=== PATIENT | female | born 1980 | race Caucasian/White ===

== ENCOUNTER 2017-01-12 14:11 | Emergency (ER) | payer SELFPAY ==
[2017-01-12] MEDS ORDERED: ASPIRIN 81 MG TABLET, CHEWABLE PO ONE (15:57)
--- NOTE | 2017-01-12 15:57 | ER Document Report ---
ED Medical Screen (RME) - General Mode of Arrival: Wheelchair Information source: Patient TRAVEL OUTSIDE OF THE [place] IN LAST 30 DAYS: No - HPI Patient complains to provider of: Dizziness Onset: This morning Associated Symptoms: Other - see notes above <TREVIN STAFFORD - Last Filed: 01/12/17 17:02> <ROBER PICHARDO - Last Filed: 01/12/17 19:44> - General Chief Complaint: Dizziness Stated Complaint: WEAKNESS,DIZZY Time Seen by Provider: 01/12/17 15:50 Notes: 36 year old female with history of CHF presents to the ED complaining of dizziness and shortness of breath that started earlier this morning after having a syncopal episode at her doctor's office. Patient states that she was diagnosed with a bowel impaction and low blood pressure by her physician 3 days ago and started vomiting excessively the next day. Patient returned to her physician yesterday and was given IV fluids and IM medication for vomiting. Patient's last bowel movement was yesterday afternoon. Patient reports feeling dizzy and seeing floaters when standing. Patient has a history of percocet use and has been undergoing rehab with suboxone. Patient weaned off suboxone 2 weeks ago. (TREVIN STAFFORD) - Related Data Allergies/Adverse Reactions: Sulfa (Sulfonamide Antibiotics) Allergy (Verified 01/12/17 16:25) Past Medical History - General Information source: Patient - Social History Cigarette use (# per day): Yes Chew tobacco use (# tins/day): No Frequency of alcohol use: None Drug Abuse: Prescription drugs - previous percocet use Family history: Reviewed & Not Pertinent - Past Medical History Cardiac Medical History: Reports: Hx Congestive Heart Failure, Hx Hypertension Renal/ Medical History: Denies: Hx Peritoneal Dialysis <TREVIN STAFFORD - Last Filed: 01/12/17 17:02> Review of Systems - Review of Systems Constitutional: No symptoms reported EENT: No symptoms reported Cardiovascular: See HPI, Syncope, Dizziness Respiratory: No symptoms reported Gastrointestinal: See HPI, Vomiting, Last bowel movement - yesterday afternoon, Other - bowel impaction Genitourinary: No symptoms reported Female Genitourinary: No symptoms reported Musculoskeletal: No symptoms reported Skin: No symptoms reported Hematologic/Lymphatic: No symptoms reported Neurological/Psychological: No symptoms reported -: Yes All other systems reviewed and negative <TREVIN STAFFORD - Last Filed: 01/12/17 17:02> Physical Exam - General General appearance: Alert In distress: None - Respiratory Respiratory status: No respiratory distress Breath sounds: Normal - Cardiovascular Rhythm: Regular Heart sounds: Normal auscultation Murmur: No Friction rub: No Gallop: None auscultated - Extremities General upper extremity: Normal inspection, Normal ROM. No: Edema General lower extremity: Normal inspection, Normal ROM. No: Edema <TREVIN STAFFORD - Last Filed: 01/12/17 17:02> - Vital signs Vitals: Temp Pulse BP Pulse Ox 98.5 F 22 L 94/73 L 90 L 01/12/17 14:13 01/12/17 14:13 01/12/17 14:13 01/12/17 14:13 Course - Laboratory Result Diagrams: 01/12/17 15:57 01/12/17 15:57 <ROBER PICHARDO - Last Filed: 01/12/17 19:44> - Vital Signs Vital signs: Temp Pulse Resp BP Pulse Ox 98.5 F 22 L 94/73 L 90 L 01/12/17 14:13 01/12/17 14:13 01/12/17 14:13 01/12/17 14:13 - Laboratory Laboratory results interpreted by me: 01/12/17 01/12/17 15:57 15:57 WBC 20.4 H RBC 6.00 H Hgb 17.0 H Hct 50.6 H RDW 17.8 H Abs Neuts (Manual) 13.5 H Abs Lymphs (Manual) 5.9 H Calcium 10.4 H Direct Bilirubin 0.5 H AST 37 H Creatine Kinase 27 L Scribe Documentation - Scribe Written by Scribe:: Raleigh Stockton 01/12/2017 1732 acting as scribe for :: Kingsley <TREVIN STAFFORD - Last Filed: 01/12/17 17:02>
[2017-01-12 17:13] LABS: HEMATOCRIT 50.6 % (36.0-47.0); HGB HCT DIFFERENCE 0.4; MEAN CORPUSCULAR HEMOGLOBIN 28.4 pg (27.0-33.4); MEAN CORPUSCULAR HGB CONC 33.7 g/dL (32.0-36.0); MEAN CORPUSCULAR VOLUME 84 fl (80-97); RED CELL DISTRIBUTION WIDTH 17.8 % (11.5-14.0); WHITE BLOOD COUNT 20.4 10^3/uL (4.0-10.5)
--- NOTE | 2017-01-12 17:17 | RADIOLOGY REPORT (SQ) ---
EXAM DESCRIPTION: CHEST SINGLE VIEW COMPLETED DATE/TIME: 01/12/2017 5:10 pm REASON FOR STUDY: SOB, h/o CHF COMPARISON: None. EXAM PARAMETERS: NUMBER OF VIEWS: One view. TECHNIQUE: Single frontal radiographic view of the chest acquired. RADIATION DOSE: NA LIMITATIONS: None. FINDINGS: LUNGS AND PLEURA: No opacities, masses or pneumothorax. No pleural effusion. MEDIASTINUM AND HILAR STRUCTURES: No masses. Contour normal. HEART AND VASCULAR STRUCTURES: Heart normal in size. Normal vasculature. BONES: No acute findings. HARDWARE: None in the chest. OTHER: No other significant finding. IMPRESSION: NO ACUTE RADIOGRAPHIC FINDING IN THE CHEST. TECHNICAL DOCUMENTATION: JOB ID: [id number]
[2017-01-12 17:32] LABS: ALANINE AMINOTRANSFERASE 44 U/L (9-52); ALKALINE PHOSPHATASE 82 U/L (38-126); ANION GAP 17 (5-19); ASPARTATE AMINO TRANSFERASE 37 U/L (14-36); BILIRUBIN,DIRECT 0.5 mg/dL (0.0-0.4); BILIRUBIN,TOTAL 1.2 mg/dL (0.2-1.3); BLOOD UREA NITROGEN 19 mg/dL (7-20); CALCIUM 10.4 mg/dL (8.4-10.2); CARBON DIOXIDE 24 mmol/L (22-30); CHLORIDE 99 mmol/L (98-107); CREATINE KINASE 27 U/L (30-135); CREATININE RESULT 0.82 mg/dL (0.52-1.25); GLUCOSE 95 mg/dL (75-110); POTASSIUM 4.2 mmol/L (3.6-5.0); SODIUM 140.2 mmol/L (137-145); TOTAL PROTEIN 7.9 g/dL (6.3-8.2)
[2017-01-12 17:43] LABS: CREATINE KINASE MB 0.91 ng/mL (<4.55)
[2017-01-12 18:02] LABS: TROPONIN I 0.037 ng/mL
[2017-01-12 18:17] LABS: BASOPHILS % (MANUAL) 0 % (0-2); EOSINOPHILS % (MANUAL) 0 % (0-6); LYMPHOCYTES % (MANUAL) 20 % (13-45); TOTAL CELLS COUNTED 100
[2017-01-12 18:20] LABS: ANISOCYTOSIS 1+; OVALOCYTES SLIGHT
[2017-01-12] MEDS ORDERED: DICYCLOMINE HCL INJ 20 MG/2 ML AMPULE IM ONE (18:41)
--- NOTE | 2017-01-12 18:45 | ER Document Report ---
ED General - General Chief Complaint: Dizziness Stated Complaint: WEAKNESS,DIZZY Time Seen by Provider: 01/12/17 15:50 Mode of Arrival: Wheelchair Information source: Patient Notes: 36-year-old female presents with complaints of lightheadedness dizziness constipation. Patient notes she is passed out 3 times a day feels when she stands up she passes out. Patient denies any fevers or chills denies any shortness of breath. She does admit to abdominal cramping TRAVEL OUTSIDE OF THE [place] IN LAST 30 DAYS: No - HPI Onset: Last week Onset/Duration: Persistent Quality of pain: Cramping Severity: Mild Pain Level: 1 Associated symptoms: Nausea, Vomiting, Other - Constipation Exacerbated by: Standing Relieved by: Denies Similar symptoms previously: No Recently seen / treated by doctor: No - Related Data Allergies/Adverse Reactions: Sulfa (Sulfonamide Antibiotics) Allergy (Verified 01/12/17 16:25) Past Medical History - General Information source: Patient - Social History Smoking Status: Current Every Day Smoker Cigarette use (# per day): Yes Chew tobacco use (# tins/day): No Smoking Education Provided: No Frequency of alcohol use: None Drug Abuse: Prescription drugs - previous percocet use Family History: Reviewed & Not Pertinent Patient has suicidal ideation: No - Past Medical History Cardiac Medical History: Reports: Hx Congestive Heart Failure, Hx Hypertension Pulmonary Medical History: Reports: Hx Pneumonia Renal/ Medical History: Denies: Hx Peritoneal Dialysis Past Surgical History: Reports: Hx Cardiac Catheterization, Hx Tubal Ligation - Immunizations Hx Diphtheria, Pertussis, Tetanus Vaccination: Yes - 2014 Review of Systems - Review of Systems Notes: REVIEW OF SYSTEMS: CONSTITUTIONAL : Denies fever, chills, or sweats. Denies recent illness. EENT: Denies eye, ear, throat, or mouth pain or symptoms. Denies nasal or sinus congestion or discharge. Denies throat, tongue, or mouth swelling or difficulty swallowing. CARDIOVASCULAR: Admits to syncope RESPIRATORY: Denies cough, cold, or chest congestion. Denies shortness of breath, difficulty breathing, or wheezing. GASTROINTESTINAL: Admits constipation GENITOURINARY: Denies difficulty urinating, painful urination, burning, frequency, blood in urine, or discharge. FEMALE GENITOURINARY: Denies vaginal bleeding, heavy or abnormal periods, irregular periods. Denies vaginal discharge or odor. MUSCULOSKELETAL: Denies back or neck pain or stiffness. Denies joint pain or swelling. SKIN: Denies rash, lesions or sores. HEMATOLOGIC : Denies easy bruising or bleeding. LYMPHATIC: Denies swollen, enlarged glands. NEUROLOGICAL: Denies confusion or altered mental status. Denies passing out or loss of consciousness. Denies dizziness or lightheadedness. Denies headache. Denies weakness or paralysis or loss of use of either side. Denies problems with gait or speech. Denies sensory loss, numbness, or tingling. Denies seizures. PSYCHIATRIC: Denies anxiety or stress. Denies depression, suicidal ideation, or homicidal ideation. ALL OTHER SYSTEMS REVIEWED AND NEGATIVE. PHYSICAL EXAMINATION: GENERAL: Well-appearing, well-nourished and in no acute distress. HEAD: Atraumatic, normocephalic. EYES: Pupils equal round and reactive to light, extraocular movements intact, conjunctiva are normal. ENT: Nares patent, oropharynx clear without exudates. Moist mucous membranes. NECK: Normal range of motion, supple without lymphadenopathy LUNGS: Breath sounds clear to auscultation bilaterally and equal. No wheezes rales or rhonchi. Patient is satting 100% on room air HEART: Regular rate and rhythm without murmurs heart rate is at 85 but raises to 102 when I start talking ABDOMEN: Soft, nontender, nondistended abdomen. No guarding, no rebound. No masses appreciated. Female : deferred Musculoskeletal: Normal range of motion, no pitting or edema. No cyanosis. NEUROLOGICAL: Cranial nerves grossly intact. Normal speech, normal gait. Normal sensory, motor exams PSYCH: Normal mood, normal affect. SKIN: Warm, Dry, normal turgor, no rashes or lesions noted. Dictation was performed using [employer] voice recognition software Physical Exam - Vital signs Vitals: Temp Pulse BP Pulse Ox 98.5 F 22 L 94/73 L 90 L 01/12/17 14:13 01/12/17 14:13 01/12/17 14:13 01/12/17 14:13 Course - Re-evaluation Re-evalutation: 01/12/17 18:45 Patient notes that she has a history of Percocet abuse and just came out of rehab for it. She denies any fevers or chills 01/12/17 21:37 Patient's white count is noted to be significantly elevated, I believe this may be secondary to viral syndrome that she has had associated with nausea and vomiting. CTs were performed no acute abnormality was noted patient's vital signs stabilized and she is stable for discharge After performing a Medical Screening Examination, I estimate there is LOW risk for ACUTE APPENDICITIS, BOWEL OBSTRUCTION, ACUTE CHOLECYSTITIS, PERFORATED DIVERTICULITIS, INCARCERATED HERNIA, PANCREATITIS, PELVIC INFLAMMATORY DISEASE, PERFORATED ULCER, ECTOPIC , or TUBO-OVARIAN ABSCESS, thus I consider the discharge disposition reasonable. Also, there is no evidence or peritonitis , sepsis, or toxicity. I have reevaluated this patient multiple times and no significant life threatening changes are noted. The patient and I have discussed the diagnosis and risks, and we agree with discharging home with close follow-up with the understanding that symptoms and presentations can change. We also discussed returning to the Emergency Department immediately if new or worsening symptoms occur. We have discussed the symptoms which are most concerning (e.g., bloody stool, fever, changing or worsening pain, vomiting) that necessitate immediate return. - Vital Signs Vital signs: Temp Pulse Resp BP Pulse Ox 98.5 F 22 L 14 148/99 H 99 01/12/17 14:13 01/12/17 14:13 01/12/17 21:13 01/12/17 21:13 01/12/17 21:13 - Laboratory Result Diagrams: 01/12/17 15:57 01/12/17 15:57 Laboratory results interpreted by me: 01/12/17 01/12/17 15:57 15:57 WBC 20.4 H RBC 6.00 H Hgb 17.0 H Hct 50.6 H RDW 17.8 H Abs Neuts (Manual) 13.5 H Abs Lymphs (Manual) 5.9 H Calcium 10.4 H Direct Bilirubin 0.5 H AST 37 H Creatine Kinase 27 L - Diagnostic Test Radiology reviewed: Image reviewed, Reports reviewed Discharge - Discharge Clinical Impression: Nausea & vomiting Qualifiers: Vomiting type: unspecified Vomiting Intractability: non-intractable Qualified Code(s): R11.2 - Nausea with vomiting, unspecified Elevated white blood cell count Qualifiers: Leukocytosis type: unspecified Qualified Code(s): D72.829 - Elevated white blood cell count, unspecified Condition: Stable Disposition: HOME, SELF-CARE Instructions: Vomiting ([facility]) Additional Instructions: Follow up with your physician tomorrow for further care or return to the ED IMMEDIATELY if symptoms worsen or new concerns occur. If you cannot afford to follow up with your primary care physician a list of low cost clinics have been provided at the end of your discharge papers as well. Prescriptions: Dicyclomine HCl [Bentyl 20 mg Tablet] 20 mg PO QID #40 tablet Metoclopramide HCl [Reglan 10 mg Tablet] 1 - 2 tab PO ASDIR PRN #25 tablet PRN Reason:
[2017-01-12] MEDS: NORMAL SALINE 1000 ML 1,000 ML IV PRN ×2 (19:01→21:17)
--- NOTE | 2017-01-12 19:48 | EKG REPORT ---
SEVERITY:- ABNORMAL ECG - SINUS RHYTHM SHORT MO INTERVAL, ACCELERATED AV CONDUCTION ANAI, CONSIDER BIATRIAL ABNORMALITIES BORDERLINE RIGHT AXIS DEVIATION CONSIDER LEFT VENTRICULAR HYPERTROPHY : Confirmed by: David Nowak MD 12-Jan-2017 19:47:55
[2017-01-12 21:19] VITALS: BP 148/99
--- NOTE | 2017-01-12 21:23 | RADIOLOGY REPORT (SQ) ---
EXAM DESCRIPTION: CTA CHEST; CTA ABDOMEN; CTA PELVIS COMPLETED DATE/TIME: 01/12/2017 9:09 pm REASON FOR STUDY: sob; syncope sob, abd pain COMPARISON: None. TECHNIQUE: CT scan of the abdominal aorta extending to the iliac bifurcation performed with and with out intravenous contrast using helical scanning technique with dynamic intravenous contrast injection . Images reviewed with lung, soft tissue, and bone windows. Reconstructed coronal and sagittal MPR im ages reviewed. All images stored on PACS. Advanced 3D imaging as volume rendering, MIPS, SSD performed? yes All CT scanners at this facility use dose modulation, iterative reconstruction, and/or weight based d osing when appropriate to reduce radiation dose to as low as reasonably achievable (ALARA). [facility]: Dose Right [facility]: CareDose [facility]: Dose Right [facility]: Teradose 4D [facility]: [employer] CONTRAST TYPE AND DOSE: contrast/concentration: Isovue 370.00 mg/ml; Total Contrast Delivered: 130.0 ml; Total Saline Delivered: 72.2 ml RENAL FUNCTION: GFR > 60. LIMITATIONS: None. FINDINGS: AORTA AND VESSELS: No aneurysm. No dissection. Renal arteries, SMA, celiac without stenosi s. LUNGS: No significant findings. No nodules or infiltrates. LIVER: Normal size. No masses or dilated ducts. SPLEEN: Normal size. No focal lesions. PANCREAS: No masses. No significant calcifications. No adjacent inflammation or peripancreatic fluid collections. Pancreatic duct not dilated. GALLBLADDER: No identified stones by CT criteria. No inflammatory changes to suggest cholecystitis. ADRENAL GLANDS: No significant masses or asymmetry. RIGHT KIDNEY AND URETER: No mass, calculi or urinary tract obstruction. LEFT KIDNEY AND URETER: No mass, calculi or urinary tract obstruction. RETROPERITONEUM: No retroperitoneal adenopathy, hemorrhage or masses. BOWEL AND PERITONEAL CAVITY: No masses or inflammatory changes. No free fluid or peritoneal masses. APPENDIX: Normal. ABDOMINAL WALL: No masses. No hernias. BONY STRUCTURES: No significant or acute findings. 3-D IMAGING: Confirms the above findings. OTHER: No other significant finding. IMPRESSION: NO ABDOMINAL AORTIC ANEURYSM, DISSECTION OR SIGNIFICANT STENOSIS. NO SIGNIFICANT FINDING S. TECHNICAL DOCUMENTATION: JOB ID: [id number] Quality ID # [id number]: Final reports with documentation of one or more dose reduction techniques (e.g., Au tomated exposure control, adjustment of the mA and/or kV according to patient size, use of iterative reconstruction technique) 2010 [employer]- All Rights Reserved
[2017-01-12] MEDS ORDERED: METOCLOPRAMIDE HCL INJ/PF 10 MG/2 ML SDV IV ONE (22:04)
== END 2017-01-12 23:49 | disposition home or self-care (01) ==
LOC: ER 14:11
DX: R11.2 Nausea with vomiting, unspecified (principal); D72.829 Elevated white blood cell count, unspecified; R55 Syncope and collapse; K59.00 Constipation, unspecified; R10.9 Unspecified abdominal pain; F17.210 Nicotine dependence, cigarettes, uncomplicated; I10 Essential (primary) hypertension; Z88.2 Allergy status to sulfonamides
CPT/HCPCS: 93005; 99285; 96372; 96361; 96374; 36415; 82553; 82550; 85025; 80053; 84484; 83880; 71010; 71275; 74175; 72191; 93010; J0500; J2765; J7030

== ENCOUNTER 2017-03-22 13:16 | Inpatient (IN) | payer SELFPAY ==
[2017-03-22] MEDS ORDERED: NORMAL SALINE 1000 ML 1,000 ML IV ONE (14:35)
[2017-03-22] MEDS ORDERED: ONDANSETRON HCL INJ/PF 4 MG/2 ML SDV IV ONE ×2 (15:04→19:22)
--- NOTE | 2017-03-22 15:13 | ER Document Report ---
ED General - General Chief Complaint: Abdominal Pain Stated Complaint: ABDOMINAL PAIN Time Seen by Provider: 03/22/17 14:17 Mode of Arrival: Ambulatory Information source: Patient TRAVEL OUTSIDE OF THE [place] IN LAST 30 DAYS: No - HPI Patient complains to provider of: abdominal pain Onset: This morning Onset/Duration: Sudden Quality of pain: Cramping Severity: Severe Associated symptoms: Diarrhea, Headache, Nausea, Vomiting Exacerbated by: Movement Relieved by: Denies Similar symptoms previously: No Recently seen / treated by doctor: No Notes: 36-year-old female presents emergency department stating that she has had nausea vomiting and diarrhea with crampy abdominal pain and headache since this morning around 6 AM. She last ate cookout last night. No fevers or sick contacts. No other complaints. Patient also states that she had pneumonia which resulted in a "balloon in her heart" which is no longer there. She states she was on heart medications a few years ago but her insurance ran out so she cannot afford them. She also states that she smokes marijuana occasionally. - Related Data Allergies/Adverse Reactions: Sulfa (Sulfonamide Antibiotics) Allergy (Verified 01/12/17 16:25) Home Medications: Current Home Medications No Home Medications 03/22/17 [History] Past Medical History - General Information source: Patient - Social History Smoking Status: Former Smoker Cigarette use (# per day): No Chew tobacco use (# tins/day): No Smoking Education Provided: No Frequency of alcohol use: Social Drug Abuse: Marijuana Lives with: Family Family History: Reviewed & Not Pertinent - Past Medical History Cardiac Medical History: Reports: Hx Congestive Heart Failure, Hx Hypertension Pulmonary Medical History: Reports: Hx Pneumonia EENT Medical History: Reports: None Neurological Medical History: Reports: None Endocrine Medical History: Reports: None Renal/ Medical History: Reports: None. Denies: Hx Peritoneal Dialysis Malignancy Medical History: Reports: None GI Medical History: Reports: None Musculoskeltal Medical History: Reports None Skin Medical History: Reports None Psychiatric Medical History: Reports: None Traumatic Medical History: Reports: None Infectious Medical History: Reports: None Past Surgical History: Reports: Hx Cardiac Catheterization, Hx Tubal Ligation - Immunizations Hx Diphtheria, Pertussis, Tetanus Vaccination: Yes - 2014 Review of Systems - Review of Systems Constitutional: No symptoms reported EENT: No symptoms reported Cardiovascular: No symptoms reported Respiratory: No symptoms reported Gastrointestinal: See HPI Genitourinary: No symptoms reported Female Genitourinary: No symptoms reported Musculoskeletal: No symptoms reported Skin: No symptoms reported Hematologic/Lymphatic: No symptoms reported Neurological/Psychological: No symptoms reported Physical Exam - Vital signs Vitals: Resp Pulse Ox 14 100 03/22/17 13:36 03/22/17 13:36 Blood pressures 200s over 100s Notes: Temperature 97.5 oral - Notes Notes: PHYSICAL EXAMINATION: GENERAL: Patient is lying in bed appearing in moderate distress secondary to abdominal pain. She has an emesis bag next to her however it is empty.. HEAD: Atraumatic, normocephalic. EYES: Pupils equal round and reactive to light, extraocular movements intact, conjunctiva are normal. ENT: Nares patent, oropharynx clear without exudates. Dry mucous membranes. NECK: Normal range of motion, supple without lymphadenopathy LUNGS: Breath sounds clear to auscultation bilaterally and equal. No wheezes rales or rhonchi. HEART: Regular rate and rhythm without murmurs ABDOMEN: Soft, mild diffuse tenderness, nondistended abdomen. No guarding, no rebound. No masses appreciated. She has brown stool in the commode with apple jelly like entity within the stool Female : deferred Musculoskeletal: Normal range of motion, no pitting or edema. No cyanosis. NEUROLOGICAL: Cranial nerves grossly intact. Normal speech, normal gait. Normal sensory, motor exams PSYCH: Normal mood, normal affect. SKIN: Warm, Dry, normal turgor, no rashes or lesions noted. Course - Re-evaluation Re-evalutation: 03/22/17 19:26 Pt. still with nausea/pain. I called over to CT to see when CT will be read. There is an IT problem with image transmission to radiologist and they are working on it. 03/22/17 19:27 - Vital Signs Vital signs: Temp Pulse Resp BP Pulse Ox 98.4 F 26 H 137/94 H 95 03/22/17 20:40 03/22/17 22:01 03/22/17 22:01 03/22/17 22:01 - Laboratory Result Diagrams: 03/22/17 15:10 03/22/17 15:10 Laboratory results interpreted by me: 03/22/17 03/22/17 03/22/17 15:10 15:10 15:30 WBC 20.5 H RDW 15.6 H Seg Neuts % (Manual) 92 H Lymphocytes % (Manual) 7 L Monocytes % (Manual) 1 L Abs Neuts (Manual) 18.9 H Sodium 146.3 H Chloride 109 H Glucose 147 H AST 38 H Urine Protein 100 H Urine Glucose (UA) 50 H Urine Urobilinogen 4.0 H Urine Ascorbic Acid 40 H - Diagnostic Test Radiology results interpreted by me: 03/22/17 2Diagnostic report text EXAM DESCRIPTION: U/S ABDOMEN LIMITED W/O DOP COMPLETED DATE/TIME: 03/22/2017 8:50 pm REASON FOR STUDY: ruq pain/vomiting COMPARISON: None. TECHNIQUE: Dynamic and static grayscale images acquired of the abdomen and recorded on PACS. Additional selected color Doppler and spectral images recorded. LIMITATIONS: None. FINDINGS: PANCREAS: No masses. Visualized pancreatic duct normal caliber. LIVER: No masses. Echotexture normal. LIVER VASCULATURE: Normal directional flow of the main portal vein and hepatic veins. GALLBLADDER: No stones. Gallbladder wall thickening, 4 mm. There is pericholecystic fluid. ULTRASOUND-DETECTED BARGER'S SIGN: Positive. INTRAHEPATIC DUCTS AND COMMON DUCT: CBD and intrahepatic ducts normal caliber. No filling defects. INFERIOR VENA CAVA: Normal flow. AORTA: No aneurysm. RIGHT KIDNEY: Normal size. Normal echogenicity. No solid or suspicious masses. No hydronephrosis. No calcifications. PERITONEAL AND RIGHT PLEURAL SPACE: No ascites or effusions. OTHER: No other significant findings. IMPRESSION: Positive sonographic Barger sign. Gallbladder wall thickening and pericholecystic free fluid. Consider surgical consultation. TECHNICAL DOCUMENTATION: JOB ID: [id number] [place]-72 2010 [employer]- All Rights Reserved Dictated by: ROULA GALDAMEZ MD [id number] CC: ANNIE QUEEN, DO 2:34 Discharge - Discharge Clinical Impression: Cholecystitis, H/O leukocytosis Condition: Stable Admitting Provider: Surgicalist - Dr. Bowens Unit Admitted: Surgical Floor
[2017-03-22] MEDS ORDERED: MORPHINE SULFATE 10 MG/ML INJ IV ONE ×2 (15:14→19:22)
[2017-03-22 15:30] LABS: HEMOGLOBIN 13.5 g/dL (12.0-15.5); HGB HCT DIFFERENCE 0.5; MEAN CORPUSCULAR HEMOGLOBIN 29.8 pg (27.0-33.4); MEAN CORPUSCULAR HGB CONC 33.8 g/dL (32.0-36.0); MEAN CORPUSCULAR VOLUME 88 fl (80-97); RED BLOOD COUNT 4.54 10^6/uL (3.72-5.28); RED CELL DISTRIBUTION WIDTH 15.6 % (11.5-14.0); WHITE BLOOD COUNT 20.5 10^3/uL (4.0-10.5)
[2017-03-22 15:41] LABS: ALANINE AMINOTRANSFERASE 39 U/L (9-52); ALBUMIN 4.3 g/dL (3.5-5.0); ALKALINE PHOSPHATASE 97 U/L (38-126); ANION GAP 14 (5-19); ASPARTATE AMINO TRANSFERASE 38 U/L (14-36); BILIRUBIN,DIRECT 0.2 mg/dL (0.0-0.4); BILIRUBIN,TOTAL 0.4 mg/dL (0.2-1.3); BLOOD UREA NITROGEN 13 mg/dL (7-20); CALCIUM 9.6 mg/dL (8.4-10.2); CARBON DIOXIDE 23 mmol/L (22-30); CHLORIDE 109 mmol/L (98-107); GLUCOSE 147 mg/dL (75-110); LIPASE 41.9 U/L (23-300); MAGNESIUM 1.6 mg/dL (1.6-2.3); POTASSIUM 3.9 mmol/L (3.6-5.0); SODIUM 146.3 mmol/L (137-145); TOTAL PROTEIN 6.6 g/dL (6.3-8.2)
[2017-03-22 15:42] LABS: ALCOHOL < 10 mg/dL (NONE DETECTED)
[2017-03-22 15:56] LABS: ANISOCYTOSIS SLIGHT; BASOPHILS % (MANUAL) 0 % (0-2); EOSINOPHILS % (MANUAL) 0 % (0-6); LYMPHOCYTES % (MANUAL) 7 % (13-45); TOTAL CELLS COUNTED 100
[2017-03-22 17:07] LABS: APPEARANCE,URINE SLIGHTLY-CLOUDY; BILIRUBIN,URINE NEGATIVE (NEGATIVE); GLUCOSE, URINE 50 mg/dL (NEGATIVE); KETONES,URINE NEGATIVE (NEGATIVE); LEUKOCYTE ESTERASE,URINE NEGATIVE (NEGATIVE); NITRITE,URINE NEGATIVE (NEGATIVE); PROTEIN,URINE 100 mg/dL (NEGATIVE); URINE SPECIFIC GRAVITY 1.026
[2017-03-22 17:19] LABS: URINE BARBITURATES SCREEN NEGATIVE; URINE METHADONE SCREEN NEGATIVE; URINE OPIATES LOW NEGATIVE; URINE PHENCYCLIDINE SCREEN NEGATIVE
[2017-03-22] MEDS ORDERED: KETOROLAC TROMETHAMINE INJ/PF 30 MG/1 ML SDV IV ONE (17:29)
[2017-03-22] MEDS ORDERED: RINGERS SOLUTION,LACTATED 1,000 ML IV ONE (19:22)
--- NOTE | 2017-03-22 20:08 | RADIOLOGY REPORT (SQ) ---
EXAM DESCRIPTION: CT ABD/PELVIS WITH IV ONLY COMPLETED DATE/TIME: 03/22/2017 6:24 pm REASON FOR STUDY: abd pain/WBC 20 COMPARISON: 01/12/2017 TECHNIQUE: CT scan of the abdomen and pelvis performed using helical scanning technique with dynamic intravenous contrast injection. No oral contrast. Images reviewed with lung, soft tissue, and bone windows. Reconstructed coronal and sagittal MPR images reviewed. Delayed images for evaluation of the urinary system also acquired. All images stored on PACS. All CT scanners at this facility use dose modulation, iterative reconstruction, and/or weight based d osing when appropriate to reduce radiation dose to as low as reasonably achievable (ALARA). [facility]: Dose Right [facility]: CareDose [facility]: Dose Right [facility]: Teradose 4D [facility]: [employer] CONTRAST TYPE AND DOSE: contrast/concentration: Isovue 370.00 mg/ml; Total Contrast Delivered: 69.0 ml; Total Saline Delivered: 62.1 ml RENAL FUNCTION: GFR > 60. RADIATION DOSE: CT Rad equipment meets quality standard of care and radiation dose reduction techniq ues were employed. CTDIvol: 4.8 - 5.2 mGy. DLP: 538 mGy-cm.. LIMITATIONS: None. FINDINGS: LOWER CHEST: No significant findings. No nodules or infiltrates. LIVER: Normal size. Moderate intrahepatic periportal edema. No dilated ducts. SPLEEN: Normal size. No focal lesions. PANCREAS: No masses. No significant calcifications. No adjacent inflammation or peripancreatic fluid collections. Pancreatic duct not dilated. GALLBLADDER: Moderate inflammatory changes in the gallbladder fossa with a hydropic appearance, wall measuring 15 mm in portions. No calcified stones identified. ADRENAL GLANDS: No significant masses or asymmetry. RIGHT KIDNEY AND URETER: No solid masses. No significant calcifications. No hydronephrosis or hyd roureter. LEFT KIDNEY AND URETER: No solid masses. No significant calcifications. No hydronephrosis or hydr oureter. AORTA AND VESSELS: No aneurysm. No dissection. Renal arteries, SMA, celiac without stenosis. RETROPERITONEUM: No retroperitoneal adenopathy, hemorrhage or masses. BOWEL AND PERITONEAL CAVITY: No masses or inflammatory changes. No free fluid or peritoneal masses. APPENDIX: Not visualized. PELVIS: Mild free fluid. Normal bladder. ABDOMINAL WALL: No masses. No hernias. BONES: No acute findings. Old lower thoracic compression deformities and degenerative changes. OTHER: No other significant finding. IMPRESSION: Moderate inflammatory changes in the gallbladder fossa with a hydropic gallbladder appea juan francisco, wall measuring 15 mm in portions. No calcified stones identified. Moderate intrahepatic periportal edema. No dilated ducts. Appendix not identified. TECHNICAL DOCUMENTATION: JOB ID: [id number] [place]-72 Quality ID # [id number]: Final reports with documentation of one or more dose reduction techniques (e.g., Au tomated exposure control, adjustment of the mA and/or kV according to patient size, use of iterative reconstruction technique) 2010 [employer]- All Rights Reserved
[2017-03-22] MEDS ORDERED: AMPICILLIN SOD/SULBACTAM 3 GM VIAL IV ONE (20:40)
[2017-03-22] MEDS ORDERED: PROMETHAZINE HCL INJ 25 MG/1 ML VIAL IM ONE (20:51)
--- NOTE | 2017-03-22 22:04 | RADIOLOGY REPORT (SQ) ---
EXAM DESCRIPTION: U/S ABDOMEN LIMITED W/O DOP COMPLETED DATE/TIME: 03/22/2017 8:50 pm REASON FOR STUDY: ruq pain/vomiting COMPARISON: None. TECHNIQUE: Dynamic and static grayscale images acquired of the abdomen and recorded on PACS. Additio nal selected color Doppler and spectral images recorded. LIMITATIONS: None. FINDINGS: PANCREAS: No masses. Visualized pancreatic duct normal caliber. LIVER: No masses. Echotexture normal. LIVER VASCULATURE: Normal directional flow of the main portal vein and hepatic veins. GALLBLADDER: No stones. Gallbladder wall thickening, 4 mm. There is pericholecystic fluid. ULTRASOUND-DETECTED BARGER'S SIGN: Positive. INTRAHEPATIC DUCTS AND COMMON DUCT: CBD and intrahepatic ducts normal caliber. No filling defects. INFERIOR VENA CAVA: Normal flow. AORTA: No aneurysm. RIGHT KIDNEY: Normal size. Normal echogenicity. No solid or suspicious masses. No hydronephrosis. No calcifications. PERITONEAL AND RIGHT PLEURAL SPACE: No ascites or effusions. OTHER: No other significant findings. IMPRESSION: Positive sonographic Barger sign. Gallbladder wall thickening and pericholecystic free fluid. Consider surgical consultation. TECHNICAL DOCUMENTATION: JOB ID: [id number] [id number] [employer]- All Rights Reserved
--- NOTE | 2017-03-22 23:22 | PDOC H&P ---
History of Present Illness Admission Date/PCP: 03/22/17 22:53 Patient complains of: RUQ pains after a fatty dinner/cookout last night. History of Present Illness: DAY FARFAN is a 36 year old female c/o right sided abdominal pains an hour after eating fatty meal for dinner from a cookout. Woke up this am with fever and vomiting.Continued right sided abdominal pains.Had 2 loose stools then 3rd today was formed. Past Medical History Cardiac Medical History: Reports: Congestive Heart Failure, Hypertension Pulmonary Medical History: Reports: Pneumonia EENT Medical History: Reports: None Neurological Medical History: Reports: None Endocrine Medical History: Reports: None Renal/ Medical History: Reports: None Malignancy Medical History: Reports: None GI Medical History: Reports: None Musculoskeltal Medical History: Reports: None Skin Medical History: Reports: None Psychiatric Medical History: Reports: None Traumatic Medical History: Reports: None Infectious Medical History: Reports: None Past Surgical History Past Surgical History: Reports: Cardiac Catheterization, Tubal Ligation Social History Lives with: Family Smoking Status: Former Smoker - Advance Directive Resuscitation Status: Full Code Family History Family History: Reviewed & Not Pertinent Parental Family History Reviewed: Yes Children Family History Reviewed: No Sibling(s) Family History Reviewed.: No Medication/Allergy Home Medications: No Home Medications 03/22/17 Allergies/Adverse Reactions: Sulfa (Sulfonamide Antibiotics) Allergy (Verified 01/12/17 16:25) Review of Systems Constitutional: PRESENT: other - no fever/chills Eyes: PRESENT: other - no visual/hearing problems Cardiovascular: PRESENT: other - no chest pains Respiratory: PRESENT: other - no cough Gastrointestinal: PRESENT: abdominal pain, nausea Genitourinary: PRESENT: other - no dysuria. Has menses. Musculoskeletal: PRESENT: other - no joint swelling Integumentary: PRESENT: other - no rash Neurological: PRESENT: other - no seizures Psychiatric: PRESENT: other - no hallucinations Endocrine: PRESENT: other - no polyuria Hematologic/Lymphatic: PRESENT: other - no easy bruisability Physical Exam Vital Signs: Temp Pulse Resp BP Pulse Ox 98.4 F 26 H 137/94 H 95 03/22/17 20:40 03/22/17 22:01 03/22/17 22:01 03/22/17 22:01 General appearance: PRESENT: mild distress Head exam: PRESENT: atraumatic Eye exam: PRESENT: conjunctiva pink Mouth exam: PRESENT: moist, tongue midline Neck exam: PRESENT: full ROM Respiratory exam: PRESENT: clear to auscultation tee Cardiovascular exam: PRESENT: RRR Pulses: PRESENT: normal radial pulses Vascular exam: PRESENT: normal capillary refill GI/Abdominal exam: PRESENT: soft, tenderness - RUQ tenderness on deep palpation. More tender at RLQ Rectal exam: PRESENT: deferred Extremities exam: PRESENT: full ROM Musculoskeletal exam: PRESENT: ambulatory Neurological exam: PRESENT: alert, oriented to person, oriented to place, oriented to time, oriented to situation Psychiatric exam: PRESENT: appropriate affect Skin exam: PRESENT: normal color, warm Results Impressions: Abdomen/Pelvis CT 03/22/17 17:20 IMPRESSION: Moderate inflammatory changes in the gallbladder fossa with a hydropic gallbladder appearance, wall measuring 15 mm in portions. No calcified stones identified. Moderate intrahepatic periportal edema. No dilated ducts. Appendix not identified. Abdomen Ultrasound 03/22/17 19:22 IMPRESSION: Positive sonographic Barger sign. Gallbladder wall thickening and pericholecystic free fluid. Consider surgical consultation. Assessment & Plan - Diagnosis (1) Acalculous cholecystitis Is this a current diagnosis for this admission?: Yes - Time Time Spent: 30 to 50 Minutes - Inpatient Certification Based on my medical assessment, after consideration of the patient's comorbidities, presenting symptoms, or acuity I expect that the services needed warrant INPATIENT care.: Yes Medical Necessity: Need Close Monitoring Due to Risk of Patient Decompensation, Need For IV Fluids, Need for Pain Control, Need for IV Antibiotics Post Hospital Care: D/C or Transfer Summary - Plan Summary Plan Summary: Start IV antibiotics. Has h/o elevated WBC but no apparent cause according to patient. Was here in January with essentially same WBC. HIDA scan. If positive do lap orly Monitor clinically
[2017-03-22] MEDS ORDERED: GLUCAGON,HUMAN RECOMB 1 MG INJ SUBCUT PRN (23:23)
[2017-03-22] MEDS ORDERED: NORMAL SALINE 1000 ML 1,000 ML IV PRN (23:23)
[2017-03-22] MEDS ORDERED: DEXTROSE 40% GEL 15 GM TUBE PO PRN ×2 (23:23)
[2017-03-22] MEDS ORDERED: ONDANSETRON HCL INJ/PF 4 MG/2 ML SDV IV PRN (23:23)
[2017-03-22] MEDS ORDERED: DEXTROSE 50%-WATER 25 GM/50 ML DISP.SYRIN IV PRN ×2 (23:23)
[2017-03-23] MEDS ORDERED: NORMAL SALINE 1000 ML 1,000 ML IV PRN (00:05)
[2017-03-23] MEDS ORDERED: PIPERACILLIN/TAZOBACTAM 3.375 GM VIAL IV PRN (00:06)
[2017-03-23] MEDS ORDERED: INFLUENZA ADLT QUAD (36MOS+) 2017-18 VAC 0.5 ML SYR IM PRN (01:09)
[2017-03-23] MEDS ORDERED: PIPERACILLIN/TAZOBACTAM 3.375 GM VIAL IV ONE (01:38)
[2017-03-23] MEDS: ONDANSETRON HCL INJ/PF 4 MG/2 ML SDV IV PRN ×3 (02:19→16:52)
[2017-03-23] MEDS: MORPHINE SULFATE 10 MG/ML INJ IV PRN ×4 (02:39→19:53)
[2017-03-23 07:17] LABS: HEMATOCRIT 38.9 % (36.0-47.0); HEMOGLOBIN 13.3 g/dL (12.0-15.5); MEAN CORPUSCULAR HEMOGLOBIN 29.9 pg (27.0-33.4); MEAN CORPUSCULAR HGB CONC 34.2 g/dL (32.0-36.0); MEAN CORPUSCULAR VOLUME 88 fl (80-97); RED BLOOD COUNT 4.44 10^6/uL (3.72-5.28); WHITE BLOOD COUNT 24.8 10^3/uL (4.0-10.5)
[2017-03-23 07:39] LABS: ALANINE AMINOTRANSFERASE 34 U/L (9-52); ALBUMIN 4.1 g/dL (3.5-5.0); ALKALINE PHOSPHATASE 88 U/L (38-126); ANION GAP 14 (5-19); ASPARTATE AMINO TRANSFERASE 35 U/L (14-36); BILIRUBIN,DIRECT 0.3 mg/dL (0.0-0.4); BILIRUBIN,TOTAL 0.7 mg/dL (0.2-1.3); BLOOD UREA NITROGEN 9 mg/dL (7-20); CALCIUM 8.9 mg/dL (8.4-10.2); CARBON DIOXIDE 22 mmol/L (22-30); CHLORIDE 104 mmol/L (98-107); CREATININE RESULT 0.76 mg/dL (0.52-1.25); GLUCOSE 118 mg/dL (75-110); LIPASE 40.4 U/L (23-300); SODIUM 139.6 mmol/L (137-145); TOTAL PROTEIN 6.6 g/dL (6.3-8.2)
[2017-03-23 07:40] LABS: POTASSIUM 3.5 mmol/L (3.6-5.0)
[2017-03-23 07:54] LABS: ANISOCYTOSIS SLIGHT; BASOPHILS % (MANUAL) 0 % (0-2); EOSINOPHILS % (MANUAL) 0 % (0-6); HYPOCHROMASIA SLIGHT; LYMPHOCYTES % (MANUAL) 13 % (13-45); TOTAL CELLS COUNTED 100; TOXIC GRANULATION SLIGHT; TOXIC VACUOLATION PRESENT
[2017-03-23] MEDS ORDERED: PIPERACILLIN/TAZOBACTAM 3.375 GM VIAL IV SCH ×2 (08:00)
[2017-03-23] MEDS: PIPERACILLIN SODIUM/TAZOBACTAM 3.375 GM in NORMAL SALINE 100 ML IV SCH ×3 (09:57→20:30)
[2017-03-23] MEDS: FAMOTIDINE INJ/PF 20 MG/2 ML SDV IV SCH ×2 (09:58→21:33)
[2017-03-23] MEDS ORDERED: KETOROLAC TROMETHAMINE INJ/PF 30 MG/1 ML SDV IV PRN (12:02)
--- NOTE | 2017-03-23 14:49 | RADIOLOGY REPORT (SQ) ---
EXAM DESCRIPTION: NM HIDA SCAN COMPLETED DATE/TIME: 03/23/2017 2:37 pm REASON FOR STUDY: Cholecystitis COMPARISON: None. RADIONUCLIDE AND DOSE: DOSAGE RADIONUCLIDE: 5 millicuries Tc99m Mebrofenin. DOSAGE MORPHINE: Not required. The route of agent administration: Intravenous TECHNIQUE: Serial imaging right upper quadrant up to 30 minutes following injection of radionuclide. Patient imaged AP and Right Lateral. LIMITATIONS: None. FINDINGS: LIVER: Normal visualization without areas of photopenia. INTRA-HEPATIC BILE DUCTS: Temporal visualization normal. No dilatation. COMMON BILE DUCT: There is no emptying into the duodenum at 30 minutes. GALLBLADDER: Normal visualization. OTHER: No other significant finding. IMPRESSION: Cystic duct is patent. There is no emptying into the duodenum, possibly because of pain meds. TECHNICAL DOCUMENTATION: JOB ID: [id number] [employer]- All Rights Reserved
--- NOTE | 2017-03-23 17:51 | PDOC CONSULTATION ---
Consultation Consult Date: 03/23/17 Attending physician:: ABHIJIT MENDOSA Consult reason:: Abdominal pain and leukocytosis History of Present Illness Admission Date/PCP: 03/22/17 22:53 Patient complains of: Abdominal pain History of Present Illness: DAY FARFAN is a 36 year old female was admitted with right upper quadrant abdominal pain. Patient reports that Monday morning she woke up with nausea vomiting and cold sweats. She also had pain in her right upper quadrant. The patient denies any radiation of the pain at the time. She did have a nausea and vomiting has also had some diarrhea associated with this. She relates that she had not eaten anything at that time and woke up with the symptoms. Patient does relate having several other episodes earlier this year and she reports that she has been in the hospital 5 separate times because of nausea vomiting right upper quadrant abdominal pain. She has been given IV fluids in the past and sent home for the emergency room and she is uncertain as to the cause. She does relate that she can normally eat without difficulties except when she gets these episodes of pain. She denies any melena. She denies any dysuria. Denies any vaginal discharge. She is monogamous with the same partner for 2 years. She denies having any fevers or chills with this. She denies any shortness of breath. She does have a history of a cardiomyopathy with an ejection fraction of 10% in 2015. She reports that that has improved but she is uncertain as to what her ejection fraction is now. She had an ultrasound done in the emergency room which showed some pericolic fluid but no biliary dilatation. Her liver enzymes also have been essentially normal. Her white count however has gone up to 24,000. She continues to the right upper quadrant pain but now also has pain in the right lower quadrant. AIR TRAFFIC CONTROL SUPERVISOR has been consulted because of the possibility of PID. The patient's chlamydia and gonorrhea test have been negative. She denies any fevers chills or night sweats associated with this. She did have some cold sweats with the episode that brought her into the hospital. 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, Hypertension Pulmonary Medical History: Reports: Pneumonia EENT Medical History: Reports: None Neurological Medical History: Reports: None Endocrine Medical History: Reports: None Renal/ Medical History: Reports: None Malignancy Medical History: Reports: None GI Medical History: Reports: None Musculoskeltal Medical History: Reports: None Skin Medical History: Reports: None Psychiatric Medical History: Reports: None Traumatic Medical History: Reports: None Hematology: Reports: None Infectious Medical History: Reports: None Past Surgical History Past Surgical History: Reports: Cardiac Catheterization, Tubal Ligation Social History Information Source: Patient Lives with: Family Smoking Status: Current Every Day Smoker Frequency of Alcohol Use: None Hx Recreational Drug Use: Yes Drugs: Marijuana Hx Prescription Drug Abuse: No - Advance Directive Resuscitation Status: Full Code Family History Family History: Mother is 62 and healthy. Father is alive but his health history is unknown. Parental Family History Reviewed: Yes Children Family History Reviewed: No Sibling(s) Family History Reviewed.: No Medication/Allergy Home Medications: No Home Medications 03/22/17 Allergies/Adverse Reactions: Sulfa (Sulfonamide Antibiotics) Allergy (Verified 01/12/17 16:25) Review of Systems Constitutional: PRESENT: chills. ABSENT: fever(s), headache(s), night sweats, weight gain, weight loss Eyes: ABSENT: visual disturbances Ears: ABSENT: hearing changes Cardiovascular: ABSENT: chest pain, dyspnea on exertion, edema, orthropnea, palpitations Respiratory: ABSENT: cough, hemoptysis Gastrointestinal: PRESENT: as per HPI, abdominal pain, diarrhea, nausea, vomiting. ABSENT: melena Genitourinary: ABSENT: dysuria, hematuria Musculoskeletal: ABSENT: joint swelling Integumentary: ABSENT: rash, wounds Neurological: ABSENT: abnormal gait, abnormal speech, confusion, dizziness, focal weakness, syncope Psychiatric: ABSENT: anxiety, depression Endocrine: ABSENT: cold intolerance, heat intolerance, polydipsia, polyuria Hematologic/Lymphatic: ABSENT: easy bleeding, easy bruising Physical Exam Vital Signs: Temp Pulse Resp BP Pulse Ox 98.8 F 98 20 99/69 L 98 03/23/17 16:00 03/23/17 16:00 03/23/17 16:00 03/23/17 16:00 03/23/17 16:00 Intake & Output 03/22/17 03/23/17 03/24/17 06:59 06:59 06:59 Intake Total 1840 Output Total 100 Balance 1740 Weight 55.5 kg 55.5 kg General appearance: PRESENT: no acute distress, well-developed, well-nourished Head exam: PRESENT: atraumatic, normocephalic Eye exam: PRESENT: conjunctiva pink, EOMI, PERRLA. ABSENT: scleral icterus Ear exam: PRESENT: normal external ear exam Mouth exam: PRESENT: moist, tongue midline Neck exam: ABSENT: carotid bruit, JVD, lymphadenopathy, thyromegaly Respiratory exam: PRESENT: clear to auscultation tee. ABSENT: rales, rhonchi, wheezes Cardiovascular exam: PRESENT: RRR. ABSENT: diastolic murmur, rubs, systolic murmur Pulses: PRESENT: normal dorsalis pedis pul Vascular exam: PRESENT: normal capillary refill GI/Abdominal exam: PRESENT: normal bowel sounds, soft, tenderness - Right upper and right lower quadrant tenderness. Positive Barger sign.. ABSENT: distended , guarding, mass, organolmegaly, rebound Rectal exam: PRESENT: deferred Extremities exam: ABSENT: calf tenderness, clubbing, pedal edema Neurological exam: PRESENT: alert, awake, oriented to person, oriented to place , oriented to time, oriented to situation, CN II-XII grossly intact. ABSENT: motor sensory deficit Psychiatric exam: PRESENT: appropriate affect Skin exam: PRESENT: dry, intact, warm. ABSENT: cyanosis, rash Results Laboratory Results: 03/23/17 06:50 03/23/17 06:50 03/23/17 03/23/17 03/23/17 00:31 06:50 06:50 WBC 24.8 H RBC 4.44 Hgb 13.3 Hct 38.9 MCV 88 MCH 29.9 MCHC 34.2 RDW 16.0 H Plt Count 205 Seg Neutrophils % Not Reportable Lymphocytes % Not Reportable Monocytes % Not Reportable Eosinophils % Not Reportable Basophils % Not Reportable Absolute Neutrophils Not Reportable Absolute Lymphocytes Not Reportable Absolute Monocytes Not Reportable Absolute Eosinophils Not Reportable Absolute Basophils Not Reportable Sodium 139.6 Potassium 3.5 L Chloride 104 Carbon Dioxide 22 Anion Gap 14 BUN 9 Creatinine 0.76 Est GFR ( Amer) > 60 Est GFR (Non-Af Amer) > 60 Glucose 118 H Lactic Acid 2.9 H Calcium 8.9 Total Bilirubin 0.7 AST 35 ALT 34 Alkaline Phosphatase 88 Total Protein 6.6 Albumin 4.1 Lipase 40.4 03/23/17 06:50 WBC RBC Hgb Hct MCV MCH MCHC RDW Plt Count Seg Neutrophils % Lymphocytes % Monocytes % Eosinophils % Basophils % Absolute Neutrophils Absolute Lymphocytes Absolute Monocytes Absolute Eosinophils Absolute Basophils Sodium Potassium Chloride Carbon Dioxide Anion Gap BUN Creatinine Est GFR ( Amer) Est GFR (Non-Af Amer) Glucose Lactic Acid 1.4 Calcium Total Bilirubin AST ALT Alkaline Phosphatase Total Protein Albumin Lipase Impressions: Abdomen/Pelvis CT 03/22/17 17:20 IMPRESSION: Moderate inflammatory changes in the gallbladder fossa with a hydropic gallbladder appearance, wall measuring 15 mm in portions. No calcified stones identified. Moderate intrahepatic periportal edema. No dilated ducts. Appendix not identified. Abdomen Ultrasound 03/22/17 19:22 IMPRESSION: Positive sonographic Barger sign. Gallbladder wall thickening and pericholecystic free fluid. Consider surgical consultation. Hepatobiliary Scan Nuclear Medicine 03/23/17 00:00 IMPRESSION: Cystic duct is patent. There is no emptying into the duodenum, possibly because of pain meds. Assessment & Plan - Diagnosis (1) Acalculous cholecystitis Is this a current diagnosis for this admission?: Yes Plan: The patient had pericolic fluid but had a normal HIDA scan. Would recommend that she get an MRCP to evaluate. Patient is currently on Zosyn and agree with that antibiotic choice. Patient also does have right lower quadrant pain and will be evaluated by AIR TRAFFIC CONTROL SUPERVISOR for possible PID. (2) H/O leukocytosis Is this a current diagnosis for this admission?: Yes Plan: Patient is on Zosyn. Agree with that antibiotic choice for patient with possible intra-abdominal pathology. would consider adding Flagyl if her white count does not improve. - Time Time Spent: 50 to 70 Minutes - Plan Summary Plan Summary: Will follow along with you.
--- NOTE | 2017-03-23 18:13 | PDOC CONSULTATION ---
Consultation Consult Date: 03/23/17 Attending physician:: ABHIJIT MENDOSA Consult reason:: r/o PID History of Present Illness Admission Date/PCP: 03/22/17 22:53 Patient complains of: nausea/RUQ and RLQ pain History of Present Illness: DAY FARFAN is a 36 year old female was admitted with right upper quadrant abdominal pain and RLQ pain. Patient reports that Monday morning she woke up with nausea vomiting and cold sweats. She reports that this nausea/ abd and pelvis pain happens like this every couple of months. Today she reports that pain is around her belly button and in RLQ as well as RUQ. She did have a nausea and vomiting has also had some diarrhea associated with this. She reports that this episode occurred after eating at [employer]. Patient does relate having several other episodes earlier this year and she reports that she has been in the hospital 5 separate times because of nausea vomiting right upper quadrant abdominal pain. She has been given IV fluids in the past and sent home for the emergency room and she is uncertain as to the cause. She does relate that she can normally eat without difficulties except when she gets these episodes of pain. She denies any melena. She denies any dysuria. Denies any vaginal discharge. She is monogamous with the same partner for 2 years - . She denies having any fevers or chills with this. She denies any shortness of breath. She does have a history of a cardiomyopathy with an ejection fraction of 10% in 2015. She reports that that has improved but she is uncertain as to what her ejection fraction is now. She had an ultrasound done in the emergency room which showed some pericolic fluid but no biliary dilatation. Her liver enzymes also have been essentially normal. Her white count however has gone up to 24,000. She continues to the right upper quadrant pain but now also has pain in the right lower quadrant. The patient's chlamydia and gonorrhea test have been negative. 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, Hypertension Pulmonary Medical History: Reports: Pneumonia EENT Medical History: Reports: None Neurological Medical History: Reports: None Endocrine Medical History: Reports: None Renal/ Medical History: Reports: None Malignancy Medical History: Reports: None GI Medical History: Reports: None Musculoskeltal Medical History: Reports: None Skin Medical History: Reports: None Psychiatric Medical History: Reports: None Traumatic Medical History: Reports: None Infectious Medical History: Reports: None Social History Lives with: Family Smoking Status: Current Every Day Smoker Frequency of Alcohol Use: None Hx Recreational Drug Use: Yes Drugs: Marijuana Hx Prescription Drug Abuse: No - Advance Directive Resuscitation Status: Full Code Family History Family History: Reviewed & Not Pertinent Parental Family History Reviewed: No Children Family History Reviewed: NA Sibling(s) Family History Reviewed.: NA Medication/Allergy Home Medications: No Home Medications 03/22/17 Allergies/Adverse Reactions: Sulfa (Sulfonamide Antibiotics) Allergy (Verified 01/12/17 16:25) Review of Systems Constitutional: ABSENT: chills, fever(s), headache(s), weight gain, weight loss Cardiovascular: ABSENT: chest pain, dyspnea on exertion, edema, orthropnea, palpitations Respiratory: ABSENT: cough, hemoptysis Gastrointestinal: ABSENT: abdominal pain, constipation, diarrhea, hematemesis, hematochezia, nausea, vomiting Neurological: ABSENT: abnormal gait, abnormal speech, confusion, dizziness, focal weakness, syncope Psychiatric: ABSENT: anxiety, depression, homidical ideation, suicidal ideation Endocrine: ABSENT: cold intolerance, heat intolerance, polydipsia, polyuria Hematologic/Lymphatic: ABSENT: easy bleeding, easy bruising Physical Exam - Physical Exam Vital Signs: Temp Pulse Resp BP Pulse Ox 98.8 F 98 20 99/69 L 98 03/23/17 16:00 03/23/17 16:00 03/23/17 16:00 03/23/17 16:00 03/23/17 16:00 Intake & Output 03/22/17 03/23/17 03/24/17 06:59 06:59 06:59 Intake Total 1840 Output Total 100 Balance 1740 Weight 55.5 kg 55.5 kg General appearance: PRESENT: no acute distress, well-developed, well-nourished Head exam: PRESENT: atraumatic, normocephalic Respiratory exam: PRESENT: clear to auscultation tee, symmetrical, unlabored Cardiovascular exam: PRESENT: RRR. ABSENT: diastolic murmur, rubs, systolic murmur Pulses: PRESENT: normal dorsalis pedis pul, +2 pedal pulses bilateral Vascular exam: PRESENT: normal capillary refill GI/Abdominal exam: PRESENT: guarding, Barger's sign, normal bowel sounds, tenderness - RUQ. RLQ. ABSENT: rebound Rectal exam: PRESENT: deferred Extremities exam: PRESENT: calf tenderness Musculoskeletal exam: PRESENT: ambulatory Neurological exam: PRESENT: alert, awake, oriented to person, oriented to place , oriented to time, oriented to situation, CN II-XII grossly intact. ABSENT: motor sensory deficit Psychiatric exam: PRESENT: appropriate affect, normal mood. ABSENT: homicidal ideation, suicidal ideation Skin exam: PRESENT: dry, intact, warm. ABSENT: cyanosis, rash Result Laboratory Results: 03/23/17 06:50 03/23/17 06:50 03/23/17 03/23/17 03/23/17 00:31 06:50 06:50 WBC 24.8 H RBC 4.44 Hgb 13.3 Hct 38.9 MCV 88 MCH 29.9 MCHC 34.2 RDW 16.0 H Plt Count 205 Seg Neutrophils % Not Reportable Lymphocytes % Not Reportable Monocytes % Not Reportable Eosinophils % Not Reportable Basophils % Not Reportable Absolute Neutrophils Not Reportable Absolute Lymphocytes Not Reportable Absolute Monocytes Not Reportable Absolute Eosinophils Not Reportable Absolute Basophils Not Reportable Sodium 139.6 Potassium 3.5 L Chloride 104 Carbon Dioxide 22 Anion Gap 14 BUN 9 Creatinine 0.76 Est GFR ( Amer) > 60 Est GFR (Non-Af Amer) > 60 Glucose 118 H Lactic Acid 2.9 H Calcium 8.9 Total Bilirubin 0.7 AST 35 ALT 34 Alkaline Phosphatase 88 Total Protein 6.6 Albumin 4.1 Lipase 40.4 03/23/17 06:50 WBC RBC Hgb Hct MCV MCH MCHC RDW Plt Count Seg Neutrophils % Lymphocytes % Monocytes % Eosinophils % Basophils % Absolute Neutrophils Absolute Lymphocytes Absolute Monocytes Absolute Eosinophils Absolute Basophils Sodium Potassium Chloride Carbon Dioxide Anion Gap BUN Creatinine Est GFR ( Amer) Est GFR (Non-Af Amer) Glucose Lactic Acid 1.4 Calcium Total Bilirubin AST ALT Alkaline Phosphatase Total Protein Albumin Lipase Impressions: Abdomen/Pelvis CT 03/22/17 17:20 IMPRESSION: Moderate inflammatory changes in the gallbladder fossa with a hydropic gallbladder appearance, wall measuring 15 mm in portions. No calcified stones identified. Moderate intrahepatic periportal edema. No dilated ducts. Appendix not identified. Abdomen Ultrasound 03/22/17 19:22 IMPRESSION: Positive sonographic Barger sign. Gallbladder wall thickening and pericholecystic free fluid. Consider surgical consultation. Hepatobiliary Scan Nuclear Medicine 03/23/17 00:00 IMPRESSION: Cystic duct is patent. There is no emptying into the duodenum, possibly because of pain meds. Status: Imported from PACS Assessment & Plan - Diagnosis (1) Right lower quadrant abdominal pain Is this a current diagnosis for this admission?: Yes Plan: Patient with negative GC/CT. Pt with h/o BTL approx 5-6 years ago. unlike to be PID of SPINNING OPERATOR source with h/o BTL and negative GC/CT. Pt reports these episodes occur every couple of months. S/W admitting physician. Hospitalist consult also done. CT abdomen/pelvis is benign If suspect GI source of PID then may benefit from: Flagyl 500mg po BID for 14 days Doxycycline 100mg po BID for 14 days This can be given to patient as and outpatient at discharge. We appreciate consult and will re-eval if anything further needed. - Time Time Spent with patient: 20 minutes Critical Time spent with patient: Less than 15 minutes Medications reviewed and adjusted accordingly: Yes Anticipated discharge: Home Within: within 48 hours Disposition: per Gen Surgery - Inpatient Certification Based on my medical assessment, after consideration of the patient's comorbidities, presenting symptoms, or acuity I expect that the services needed warrant INPATIENT care.: Yes I certify that my determination is in accordance with my understanding of Medicare's requirements for reasonable and necessary INPATIENT services [42 CFR 412.3e].: Yes Medical Necessity: Failure to Improve With Outpatient Therapy, Need for Pain Control, Need for IV Antibiotics Post Hospital Care: D/C Film Archivist Documentation Past Surgical History Past Surgical History: Reports: Cardiac Catheterization, Tubal Ligation
[2017-03-24] MEDS: MORPHINE SULFATE 10 MG/ML INJ IV PRN ×3 (03:20→14:10)
[2017-03-24] MEDS: PIPERACILLIN SODIUM/TAZOBACTAM 3.375 GM in NORMAL SALINE 100 ML IV SCH ×4 (03:20→20:14)
[2017-03-24] MEDS: ONDANSETRON HCL INJ/PF 4 MG/2 ML SDV IV PRN ×3 (03:23→19:43)
[2017-03-24 05:10] LABS: ABSOLUTE EOSINOPHILS # (AUTO) 0.1 10^3/uL (0.0-0.6); ABSOLUTE MONOCYTES (AUTO) 0.5 10^3/uL (0.1-1.4); ABSOLUTE NEUT (AUTO) 6.3 10^3/uL (1.7-8.2); BASOPHILS % (AUTO) 0.5 % (0-2); EOSINOPHILS % (AUTO) 1.6 % (0-6); HEMATOCRIT 32.8 % (36.0-47.0); HGB HCT DIFFERENCE 0.8; LYMPHOCYTES % (AUTO) 22.1 % (13-45); MEAN CORPUSCULAR HEMOGLOBIN 30.1 pg (27.0-33.4); MEAN CORPUSCULAR HGB CONC 34.2 g/dL (32.0-36.0); MEAN CORPUSCULAR VOLUME 88 fl (80-97); MONOCYTES % (AUTO) 5.5 % (3-13); RED BLOOD COUNT 3.72 10^6/uL (3.72-5.28); RED CELL DISTRIBUTION WIDTH 15.9 % (11.5-14.0); SEGMENTED NEUTROPHILS % (AUTO) 70.3 % (42-78)
[2017-03-24 05:17] LABS: HEMOGLOBIN 11.2 g/dL (12.0-15.5)
[2017-03-24 05:24] LABS: ALANINE AMINOTRANSFERASE 29 U/L (9-52); ALBUMIN 3.1 g/dL (3.5-5.0); ALKALINE PHOSPHATASE 60 U/L (38-126); ANION GAP 9 (5-19); ASPARTATE AMINO TRANSFERASE 26 U/L (14-36); BILIRUBIN,DIRECT 0.2 mg/dL (0.0-0.4); BILIRUBIN,TOTAL 0.7 mg/dL (0.2-1.3); BLOOD UREA NITROGEN 8 mg/dL (7-20); CALCIUM 8.2 mg/dL (8.4-10.2); CARBON DIOXIDE 24 mmol/L (22-30); CHLORIDE 106 mmol/L (98-107); CREATININE RESULT 0.85 mg/dL (0.52-1.25); GLUCOSE 95 mg/dL (75-110); LIPASE 24.2 U/L (23-300); POTASSIUM 3.3 mmol/L (3.6-5.0); SODIUM 139.2 mmol/L (137-145); TOTAL PROTEIN 5.3 g/dL (6.3-8.2)
[2017-03-24] MEDS ORDERED: DIAZEPAM INJ 10 MG/2 ML DISP.SYRIN IV PRN (08:01)
[2017-03-24] MEDS: FAMOTIDINE INJ/PF 20 MG/2 ML SDV IV SCH ×2 (09:59→21:02)
--- NOTE | 2017-03-24 10:50 | PDOC PROGRESS REPORT ---
Subjective Progress Note for:: 03/24/17 Subjective:: Patient reports some continued right upper quadrant pain but reports is improved. Reason For Visit: ACALCULUS CHOLECYSTITIS HISTORY OF ELEVATED WBC Physical Exam Vital Signs: Temp Pulse Resp BP Pulse Ox 98.6 F 83 20 119/90 H 98 03/24/17 08:49 03/24/17 08:49 03/24/17 08:49 03/24/17 08:49 03/24/17 08:49 Intake & Output 03/23/17 03/24/17 03/25/17 06:59 06:59 06:59 Intake Total 3840 Output Total 100 Balance 3740 Weight 55.5 kg 55.2 kg General appearance: PRESENT: no acute distress Eye exam: PRESENT: conjunctiva pink. ABSENT: scleral icterus Mouth exam: PRESENT: moist, tongue midline Neck exam: ABSENT: JVD Respiratory exam: PRESENT: clear to auscultation tee. ABSENT: rales, rhonchi, wheezes Cardiovascular exam: PRESENT: RRR. ABSENT: diastolic murmur, rubs, systolic murmur GI/Abdominal exam: PRESENT: normal bowel sounds, soft, tenderness - Mild right upper quadrant tenderness but no guarding or rebound.. ABSENT: distended, guarding, mass, organolmegaly, rebound Extremities exam: ABSENT: calf tenderness, clubbing, pedal edema Neurological exam: PRESENT: alert, awake, oriented to person, oriented to place , oriented to time, oriented to situation, CN II-XII grossly intact. ABSENT: motor sensory deficit Psychiatric exam: PRESENT: appropriate affect Skin exam: PRESENT: dry, intact, warm. ABSENT: cyanosis, rash Results Laboratory Results: 03/24/17 04:08 03/24/17 04:08 03/24/17 03/24/17 03/24/17 04:08 04:08 05:53 WBC 9.0 RBC 3.72 Hgb 11.2 L D Hct 32.8 L MCV 88 MCH 30.1 MCHC 34.2 RDW 15.9 H Plt Count 116 L Seg Neutrophils % 70.3 Lymphocytes % 22.1 Monocytes % 5.5 Eosinophils % 1.6 Basophils % 0.5 Absolute Neutrophils 6.3 Absolute Lymphocytes 2.0 Absolute Monocytes 0.5 Absolute Eosinophils 0.1 Absolute Basophils 0.0 Sodium 139.2 Potassium 3.3 L Chloride 106 Carbon Dioxide 24 Anion Gap 9 BUN 8 Creatinine 0.85 Est GFR ( Amer) > 60 Est GFR (Non-Af Amer) > 60 Glucose 95 Lactic Acid 0.7 Calcium 8.2 L Total Bilirubin 0.7 AST 26 ALT 29 Alkaline Phosphatase 60 Total Protein 5.3 L Albumin 3.1 L Lipase 24.2 Impressions: Abdomen/Pelvis CT 03/22/17 17:20 IMPRESSION: Moderate inflammatory changes in the gallbladder fossa with a hydropic gallbladder appearance, wall measuring 15 mm in portions. No calcified stones identified. Moderate intrahepatic periportal edema. No dilated ducts. Appendix not identified. Abdomen Ultrasound 03/22/17 19:22 IMPRESSION: Positive sonographic Barger sign. Gallbladder wall thickening and pericholecystic free fluid. Consider surgical consultation. Hepatobiliary Scan Nuclear Medicine 03/23/17 00:00 IMPRESSION: Cystic duct is patent. There is no emptying into the duodenum, possibly because of pain meds. Assessment & Plan - Diagnosis (1) Acalculous cholecystitis Is this a current diagnosis for this admission?: Yes Plan: The patient had pericolic fluid but had a normal HIDA scan. Given that the white blood cell count has normalized I have canceled the MRCP. It is unclear as to whether the gallbladder is truly the source of her symptoms. She may benefit from GI workup however we do not have gastroenterology available at this time. Currently on Zosyn. (2) H/O leukocytosis Is this a current diagnosis for this admission?: Yes Plan: Patient is on Zosyn. The patient's white blood cell count has improved. - Time Time Spent with patient: 25-34 minutes - Plan Summary Plan Summary: Patient is improved and could possibly be transitioned to p.o. antibiotics but will defer that to surgery's recommendations
[2017-03-24] MEDS ORDERED: IBUPROFEN 800 MG TABLET PO PRN (14:58)
--- NOTE | 2017-03-24 16:38 | PDOC PROGRESS REPORT ---
Subjective Progress Note for:: 03/24/17 Reason For Visit: ACALCULUS CHOLECYSTITIS HISTORY OF ELEVATED WBC Patient is day 2 status post hospitalization on the surgical service for possible gallbladder disease. I had a long conversation with the patient, reviewed her imaging studies and discussed them at length with Dr. Robertson. 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 She spent a month at [facility]. She has not seen her service plumber recently. Patient also has a history of substance abuse, chronic dependency, rehab stay , and pain management in the past. Patient's recurrent episodes of abdominal pain have been sporadic and incompletely explained. Patient's imaging studies including review of CT scans HIDA scan ultrasonography demonstrate thin walled heart, venous congestion in the hepatic circulation specifically the hepatic veins and nehal-venule compartments extending caudad towards the gallbladder sumit hepatis region. This may explain the irritation of thickened gallbladder wall on ultrasonography. The common bile duct is of normal caliber. Liver function studies are essentially within normal limits, and the HIDA scan showed opacification of the liver gallbladder without delay. There was noted if any egress of contrast into the duodenum. Her graft patient still taking narcotic pain medication. She does state she feels better, tolerated diet. Physical Exam Vital Signs: Temp Pulse Resp BP Pulse Ox 98.5 F 77 18 110/82 99 03/24/17 12:00 03/24/17 12:00 03/24/17 12:00 03/24/17 12:00 03/24/17 12:00 Intake & Output 03/23/17 03/24/17 03/25/17 06:59 06:59 06:59 Intake Total 3840 Output Total 100 Balance 3740 Weight 55.5 kg 55.2 kg General appearance: PRESENT: no acute distress GI/Abdominal exam: PRESENT: other - Some tenderness right upper quadrant with guarding no rigidity. Results Laboratory Results: 03/24/17 04:08 03/24/17 04:08 03/24/17 03/24/17 03/24/17 04:08 04:08 05:53 WBC 9.0 RBC 3.72 Hgb 11.2 L D Hct 32.8 L MCV 88 MCH 30.1 MCHC 34.2 RDW 15.9 H Plt Count 116 L Seg Neutrophils % 70.3 Lymphocytes % 22.1 Monocytes % 5.5 Eosinophils % 1.6 Basophils % 0.5 Absolute Neutrophils 6.3 Absolute Lymphocytes 2.0 Absolute Monocytes 0.5 Absolute Eosinophils 0.1 Absolute Basophils 0.0 Sodium 139.2 Potassium 3.3 L Chloride 106 Carbon Dioxide 24 Anion Gap 9 BUN 8 Creatinine 0.85 Est GFR ( Amer) > 60 Est GFR (Non-Af Amer) > 60 Glucose 95 Lactic Acid 0.7 Calcium 8.2 L Total Bilirubin 0.7 AST 26 ALT 29 Alkaline Phosphatase 60 Total Protein 5.3 L Albumin 3.1 L Lipase 24.2 Impressions: Abdomen/Pelvis CT 03/22/17 17:20 IMPRESSION: Moderate inflammatory changes in the gallbladder fossa with a hydropic gallbladder appearance, wall measuring 15 mm in portions. No calcified stones identified. Moderate intrahepatic periportal edema. No dilated ducts. Appendix not identified. Abdomen Ultrasound 03/22/17 19:22 IMPRESSION: Positive sonographic Barger sign. Gallbladder wall thickening and pericholecystic free fluid. Consider surgical consultation. Hepatobiliary Scan Nuclear Medicine 03/23/17 00:00 IMPRESSION: Cystic duct is patent. There is no emptying into the duodenum, possibly because of pain meds. Assessment & Plan - Diagnosis (1) Right lower quadrant abdominal pain Is this a current diagnosis for this admission?: Yes Plan: Repeat associates of unclear etiology; after further evaluation, cardiomyopathy , right-sided heart insufficiency, hepatic venous congestion may be responsible for patient's right-sided abdominal symptoms. Recommendations: 1. Hold off on any surgical intervention specifically cholecystectomy, in this setting. 2. Get patient off of narcotics switched to nonsteroidal anti-inflammatory agents; this was discussed with the primary care team. 3. Anticipate patient being discharged home from [facility] tomorrow if she continues to improve. She needs to follow-up with her service plumber for further evaluation and possible referral to tertiary care institution.
[2017-03-25] MEDS: ONDANSETRON HCL INJ/PF 4 MG/2 ML SDV IV PRN (02:49)
[2017-03-25] MEDS: PIPERACILLIN SODIUM/TAZOBACTAM 3.375 GM in NORMAL SALINE 100 ML IV SCH ×2 (02:51→08:18)
[2017-03-25 08:35] VITALS: BP 132/89
--- NOTE | 2017-03-25 08:38 | DISCHARGE SUMMARY E ---
Discharge Summary NAME: DAY FARAFN : 1980 AGE: 36Y ADMITTED: 03/22/2017 DISCHARGED: 03/24/2017 ADMITTING DIAGNOSES: 1. Abdominal pain. 2. History of cardiomyopathy. DISCHARGE DIAGNOSES: 1. Cardiomyopathy. 2. Hepatic congestion possibly contributing to abdominal pain, no cholecystitis, no acute surgical problem demonstrated even after multiple investigations. OPERATIVE INTERVENTIONS: None. REASON FOR ADMISSION: The patient was admitted by on-call surgeon, Dr. Bowens, for abdominal pain. She underwent studies including gallbladder ultrasound which was normal and HIDA scan basically no acute cholecystitis, demonstrated congestion of the liver due to history of mild cardiomyopathy for which she is supposed to follow with the travel rn or. At this point, she has no shortness of breath, tolerating diet, no nausea, no vomiting. Abdomen is soft, nontender. Clinically looks well. All of lab work with no signs of any sepsis, doing relatively well. She will be going home with Zofran for the nausea and hydrocodone for the pain, gave her a prescription for 15 tablets only to follow with the primary care and travel rn or. No acute surgical problem, no surgical intervention necessary, no surgical followup is necessary because there is no surgical issue at this point. This pain is chronic abdominal pain most likely related to the liver congestion from the history of cardiomyopathy for which I strongly instructed her to follow with the primary care and her travel rn or. She is going to call them Monday to follow up with the travel rn or who had been treating her cardiomyopathy in the past. The patient was instructed to come to the emergency room if they have any other emergency problems. DICTATING PHYSICIAN: NIXON WALTERS M.D. [id number] PHY#: [id number] ID: [id number] JOB#: [id number] ACCT: [id number] cc:NIXON WALTERS M.D., FAUSTINO M.D. >
== END 2017-03-25 09:25 | disposition home or self-care (01) | DRG 316 ==
LOC: ER 13:16 → EH 22:53 → 4W 03-23 00:26 → 4S 03-23 15:14
PROVIDERS: ADMIT Surgery; ATTEND Surgery
PROC: 3E0234Z Introduction of Serum, Toxoid and Vaccine into Muscle, Percutaneous Approach (ICD-10-PCS; principal; 2017-03-25)
DX: I42.9 Cardiomyopathy, unspecified (principal); K76.1 Chronic passive congestion of liver; F17.210 Nicotine dependence, cigarettes, uncomplicated; I11.0 Hypertensive heart disease with heart failure; I50.9 Heart failure, unspecified; Z88.2 Allergy status to sulfonamides; Z23 Encounter for immunization
CPT/HCPCS: 36415; 74177; 76705; 78226; 80053; 80307; 81001; 81025; 83605; 83690; 83735; 85025; 87040; 87045; 87205; 87491; 87591; 90686; 96361; 96365; 96372; 96375; 96376; 99285; A9537; J0295; J1885; J2270; J2405; J2543; J2550; J7030; J7120; Q9969; S0028

== ENCOUNTER 2017-10-23 09:53 | Emergency (ER) | payer MEDICAID ==
[2017-10-23] MEDS ORDERED: ONDANSETRON HCL INJ/PF 4 MG/2 ML SDV IV ONE (09:57)
[2017-10-23] MEDS ORDERED: DIPHENHYDRAMINE HCL 50 MG/ML VIAL IV ONE (10:10)
[2017-10-23] MEDS ORDERED: MORPHINE SULFATE 10 MG/ML INJ IV ONE ×2 (10:10→14:57)
[2017-10-23] MEDS ORDERED: KETOROLAC TROMETHAMINE INJ/PF 30 MG/1 ML SDV IV ONE (10:10)
[2017-10-23] MEDS ORDERED: PROCHLORPERAZINE EDISYLATE INJ 10 MG/2 ML VIAL IV ONE (10:10)
--- NOTE | 2017-10-23 10:11 | RADIOLOGY REPORT (SQ) ---
EXAM DESCRIPTION: CT HEAD WITHOUT COMPLETED DATE/TIME: 10/23/2017 10:03 am REASON FOR STUDY: SEVERE LIPSCOMB, BLURRED VISION COMPARISON: None. TECHNIQUE: Axial images acquired through the brain without intravenous contrast. Images reviewed wi th bone, brain and subdural windows. Additional sagittal and coronal reconstructions were generated. Images stored on PACS. All CT scanners at this facility use dose modulation, iterative reconstruction, and/or weight based d osing when appropriate to reduce radiation dose to as low as reasonably achievable (ALARA). [facility]: Dose Right [facility]: CareDose [facility]: Dose Right [facility]: Teradose 4D [facility]: [facility] RADIATION DOSE: CT Rad equipment meets quality standard of care and radiation dose reduction techniq ues were employed. CTDIvol: 53.2 mGy. DLP: 964 mGy-cm. mGy. LIMITATIONS: None. FINDINGS: VENTRICLES: Normal size and contour. CEREBRUM: No masses. No hemorrhage. No midline shift. No evidence for acute infarction. Normal gra y/white matter differentiation. No areas of low density in the white matter. CEREBELLUM: No masses. No hemorrhage. No alteration of density. No evidence for acute infarction. EXTRAAXIAL SPACES: No fluid collections. No masses. ORBITS AND GLOBE: No intra- or extraconal masses. Normal contour of globe without masses. CALVARIUM: No fracture. PARANASAL SINUSES: No fluid levels. SOFT TISSUES: No mass or hematoma. OTHER: No other significant finding. IMPRESSION: NORMAL BRAIN CT WITHOUT CONTRAST. EVIDENCE OF ACUTE STROKE: NO. COMMENT: Pertinent positive or negative findings of the imaging study reported as a CRITICAL EXAM leo [employer]CH[employer] at10:05 on 10/23/2017. Category of Critical Exam: Stroke alert. Quality ID # [id number]: Final reports with documentation of one or more dose reduction techniques (e.g., Au tomated exposure control, adjustment of the mA and/or kV according to patient size, use of iterative reconstruction technique) TECHNICAL DOCUMENTATION: JOB ID: [id number] [employer]- All Rights Reserved Reading location - IP/workstation name: [email or web address]
[2017-10-23] MEDS ORDERED: NORMAL SALINE 1000 ML 1,000 ML IV ONE (10:12)
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
[2017-10-23] MEDS ORDERED: CLONIDINE HCL 0.2 MG TABLET PO ONE ×2 (12:30→18:59)
[2017-10-23] MEDS ORDERED: PROMETHAZINE HCL INJ 50 MG/1 ML VIAL IM PRN (13:31)
[2017-10-23] MEDS ORDERED: METOPROLOL TARTRATE 50 MG TABLET PO ONE (14:55)
[2017-10-23] MEDS ORDERED: BACLOFEN 20 MG TABLET PO ONE (14:57)
[2017-10-23] MEDS ORDERED: LABETALOL HCL INJ 20 MG/4 ML DISP.SYRIN IV ONE (18:08)
[2017-10-23] MEDS ORDERED: NORMAL SALINE 1000 ML 1,000 ML IV PRN (18:12)
[2017-10-23 19:19] LABS: HEMATOCRIT 44.9 % (36.0-47.0); HEMOGLOBIN 15.1 g/dL (12.0-15.5); MEAN CORPUSCULAR HEMOGLOBIN 29.4 pg (27.0-33.4); MEAN CORPUSCULAR HGB CONC 33.6 g/dL (32.0-36.0); MEAN CORPUSCULAR VOLUME 88 fl (80-97); PLATELET COUNT 217 10^3/uL (150-450); RED BLOOD COUNT 5.13 10^6/uL (3.72-5.28); RED CELL DISTRIBUTION WIDTH 15.8 % (11.5-14.0); WHITE BLOOD COUNT 20.7 10^3/uL (4.0-10.5)
[2017-10-23 19:36] LABS: ALANINE AMINOTRANSFERASE 18 U/L (9-52); ALBUMIN 4.7 g/dL (3.5-5.0); ALKALINE PHOSPHATASE 78 U/L (38-126); ASPARTATE AMINO TRANSFERASE 27 U/L (14-36); BILIRUBIN,DIRECT 0.3 mg/dL (0.0-0.4); BILIRUBIN,TOTAL 0.6 mg/dL (0.2-1.3); BLOOD UREA NITROGEN 12 mg/dL (7-20); CALCIUM 9.6 mg/dL (8.4-10.2); GLUCOSE 144 mg/dL (75-110); POTASSIUM 4.2 mmol/L (3.6-5.0); TOTAL PROTEIN 7.9 g/dL (6.3-8.2)
[2017-10-23 19:37] LABS: ABSOLUTE LYMPHOCYTES# (MANUAL) 1.4 10^3/uL (0.5-4.7); ABSOLUTE NEUTROPHILS# (MANUAL) 19.3 10^3/uL (1.7-8.2); BASOPHILS % (MANUAL) 0 % (0-2); EOSINOPHILS % (MANUAL) 0 % (0-6); LYMPHOCYTES % (MANUAL) 7 % (13-45); MONOCYTES % (MANUAL) 0 % (3-13); SEGMENTED NEUTROPHILS % (MAN) 93 % (42-78); TOTAL CELLS COUNTED 100
[2017-10-23 19:38] LABS: ANISOCYTOSIS SLIGHT; PLATELET COMMENT ADEQUATE; TOXIC VACUOLATION PRESENT
[2017-10-23 20:17] LABS: CARBON DIOXIDE 20 mmol/L (22-30); CHLORIDE 109 mmol/L (98-107)
[2017-10-23 20:18] LABS: ANION GAP 18 (5-19)
[2017-10-23] MEDS ORDERED: LISINOPRIL 10 MG TABLET PO ONE (20:29)
[2017-10-23 21:52] VITALS: BP 125/103
== END 2017-10-23 21:35 | disposition home or self-care (01) ==
LOC: ER 09:53
DX: G43.909 Migraine, unspecified, not intractable, without status migrainosus (principal); R11.2 Nausea with vomiting, unspecified; S16.1XXA Strain of muscle, fascia and tendon at neck level, initial encounter; X58.XXXA Exposure to other specified factors, initial encounter; D72.829 Elevated white blood cell count, unspecified; I10 Essential (primary) hypertension; R41.3 Other amnesia; Z88.2 Allergy status to sulfonamides
CPT/HCPCS: 96376; 99285; 96372; 96361; 96374; 96375; 36415; 85025; 80053; 70450; J3490 ×4; J1200; J1885; J2270; J0780; J2550; J2405; J7030

== ENCOUNTER 2017-10-30 22:10 | Emergency (ER) | payer MEDICAID ==
[2017-10-30 23:16] LABS: APPEARANCE,URINE SLIGHTLY-CLOUDY; BILIRUBIN,URINE NEGATIVE (NEGATIVE); COLOR,URINE YELLOW; GLUCOSE, URINE NEGATIVE (NEGATIVE); KETONES,URINE TRACE mg/dL (NEGATIVE); LEUKOCYTE ESTERASE,URINE NEGATIVE (NEGATIVE); NITRITE,URINE NEGATIVE (NEGATIVE); PROTEIN,URINE 30 mg/dL (NEGATIVE); URINE SPECIFIC GRAVITY 1.029
[2017-10-30 23:33] LABS: ABSOLUTE BASOPHILS # (AUTO) 0.1 10^3/uL (0.0-0.2); ABSOLUTE EOSINOPHILS # (AUTO) 0.1 10^3/uL (0.0-0.6); ABSOLUTE MONOCYTES (AUTO) 0.4 10^3/uL (0.1-1.4); ABSOLUTE NEUT (AUTO) 6.3 10^3/uL (1.7-8.2); BASOPHILS % (AUTO) 0.6 % (0-2); EOSINOPHILS % (AUTO) 1.2 % (0-6); HEMATOCRIT 42.6 % (36.0-47.0); HEMOGLOBIN 14.6 g/dL (12.0-15.5); LYMPHOCYTES % (AUTO) 30.3 % (13-45); MEAN CORPUSCULAR HGB CONC 34.2 g/dL (32.0-36.0); MEAN CORPUSCULAR VOLUME 88 fl (80-97); MONOCYTES % (AUTO) 4.3 % (3-13); PLATELET COUNT 199 10^3/uL (150-450); RED BLOOD COUNT 4.86 10^6/uL (3.72-5.28); RED CELL DISTRIBUTION WIDTH 15.6 % (11.5-14.0); SEGMENTED NEUTROPHILS % (AUTO) 63.6 % (42-78); TOTAL CELLS COUNTED % (AUTO) 100 %; WHITE BLOOD COUNT 9.9 10^3/uL (4.0-10.5)
[2017-10-30 23:49] LABS: ALANINE AMINOTRANSFERASE 26 U/L (9-52); ALBUMIN 4.5 g/dL (3.5-5.0); ALKALINE PHOSPHATASE 70 U/L (38-126); ANION GAP 14 (5-19); ASPARTATE AMINO TRANSFERASE 40 U/L (14-36); BILIRUBIN,DIRECT 0.3 mg/dL (0.0-0.4); BILIRUBIN,TOTAL 0.4 mg/dL (0.2-1.3); BLOOD UREA NITROGEN 12 mg/dL (7-20); CALCIUM 9.4 mg/dL (8.4-10.2); CARBON DIOXIDE 23 mmol/L (22-30); CHLORIDE 107 mmol/L (98-107); GLUCOSE 108 mg/dL (75-110); LIPASE 47.2 U/L (23-300); POTASSIUM 3.9 mmol/L (3.6-5.0); SODIUM 143.7 mmol/L (137-145); TOTAL PROTEIN 7.4 g/dL (6.3-8.2)
[2017-10-30] MEDS ORDERED: METOCLOPRAMIDE HCL INJ/PF 10 MG/2 ML SDV IV ONE (23:52)
[2017-10-30] MEDS ORDERED: NORMAL SALINE 1000 ML 1,000 ML IV ONE (23:52)
[2017-10-30] MEDS ORDERED: MORPHINE SULFATE 10 MG/ML INJ IV ONE (23:52)
--- NOTE | 2017-10-30 23:57 | ER Document Report ---
ED GI/ - General Chief Complaint: Abdominal Pain Stated Complaint: ABDOMINAL PAIN Time Seen by Provider: 10/30/17 23:44 Notes: Patient is a 36-year-old female that comes emergency department for chief complaint of several days of abdominal pain, vomiting, she states today she has vomited 5 times, has a bad headache, she hurts in her upper abdomen. She states he is unable to keep any food or fluids down. She states she has not had a bowel movement in almost a week but explains this is because of her very small oral intake. 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 She takes no other medications other than lisinopril which was recently changed from metoprolol. TRAVEL OUTSIDE OF THE [place] IN LAST 30 DAYS: No - Related Data Allergies/Adverse Reactions: Sulfa (Sulfonamide Antibiotics) Allergy (Verified 10/23/17 10:08) Past Medical History - General Information source: Patient - Social History Smoking Status: Never Smoker Drug Abuse: None Lives with: Spouse/Significant other Family History: Reviewed & Not Pertinent - Past Medical History Cardiac Medical History: Reports: Hx Congestive Heart Failure - History of viral cardiomyopathy EF of 10% in 2015. EF now >55, Hx Hypertension Pulmonary Medical History: Reports: Hx Pneumonia Neurological Medical History: Reports: Hx Migraine Renal/ Medical History: Denies: Hx Peritoneal Dialysis Past Surgical History: Reports: Hx Cardiac Catheterization, Hx Tubal Ligation - Immunizations Hx Diphtheria, Pertussis, Tetanus Vaccination: Yes - 2014 Review of Systems - Review of Systems Constitutional: No symptoms reported EENT: No symptoms reported Cardiovascular: No symptoms reported Respiratory: No symptoms reported Gastrointestinal: See HPI Genitourinary: No symptoms reported Female Genitourinary: No symptoms reported Musculoskeletal: No symptoms reported Skin: No symptoms reported Hematologic/Lymphatic: No symptoms reported Neurological/Psychological: See HPI Physical Exam - Vital signs Vitals: Temp Pulse Resp BP Pulse Ox 99.2 F 81 18 99/71 L 100 10/30/17 22:21 10/30/17 22:21 10/30/17 22:21 10/30/17 22:21 10/30/17 22:21 - Notes Notes: GENERAL: Patient disheveled, uncomfortable appearing, pale, vomited while I was in the room HEAD: Normocephalic, atraumatic. EYES: Pupils equal, round, and reactive to light. Extraocular movements intact. ENT: Oral mucosa dry, tongue midline. NECK: Full range of motion. Supple. Trachea midline. LUNGS: Clear to auscultation bilaterally, no wheezes, rales, or rhonchi. No respiratory distress. HEART: Regular rate and rhythm. Soft murmur. ABDOMEN: Generalized abdominal tenderness, epigastric tenderness significantly greater than the rest of the abdomen, no guarding or rigidity EXTREMITIES: Moves all 4 extremities spontaneously. No edema, normal radial and dorsalis pedis pulses bilaterally. No cyanosis. BACK: no cervical, thoracic, lumbar midline tenderness. No saddle anesthesia, normal distal neurovascular exam. NEUROLOGICAL: Alert and oriented x3. Normal speech. [cranial nerves II through XII grossly intact]. SKIN: Warm, dry, normal turgor. No rashes or lesions noted. Course - Re-evaluation Re-evalutation: Patient initially on well-appearing, vomited on my evaluation, has generalized upper abdominal pain which started first before her vomiting and her headache per patient. Vital signs are unremarkable however. CBC, chemistry, lipase actually generally unremarkable. Urinalysis consistent with dehydration but otherwise unremarkable. HCG negative. Ultrasound does not show infection, obstruction, shows adenomyomatosis of the gallbladder. Patient improved after medications, initially gave her Carafate and Pepcid, after she improved with this she began to sit fluids, gave additional medications for her headache, after this she began to eat crackers. No vomiting. She appears much improved, states she feels much improved. Medications from last time including Fioricet and naproxen for her headaches, suspect a component of gastritis as well. Discussed with patient and significant other. Patient will be medicated for gastritis and abdominal pain, referred to general surgery for evaluation and treatment of her gallbladder, and she will return if she worsens in any way. Return details discussed. They state understanding and agreement with plan. - Vital Signs Vital signs: Temp Pulse Resp BP Pulse Ox 99.2 F 81 15 146/93 H 98 10/30/17 22:21 10/30/17 22:21 10/31/17 02:02 10/31/17 02:02 10/31/17 02:02 - Laboratory Result Diagrams: 10/30/17 21:42 10/30/17 21:42 Laboratory results interpreted by me: 10/30/17 10/30/17 10/30/17 21:42 21:42 22:40 RDW 15.6 H AST 40 H Urine Protein 30 H Urine Ketones TRACE H Urine Urobilinogen 4.0 H Urine Ascorbic Acid 40 H Discharge - Discharge Clinical Impression: Dehydration Abdominal pain Qualifiers: Abdominal location: upper abdomen, unspecified Qualified Code(s): R10.10 - Upper abdominal pain, unspecified Vomiting Qualifiers: Vomiting type: unspecified Vomiting Intractability: non-intractable Nausea presence: with nausea Qualified Code(s): R11.2 - Nausea with vomiting, unspecified Condition: Stable Additional Instructions: Your workup shows dehydration and adenomyomatosis of the gallbladder. Recommendation is to take the Carafate and Pepcid for gastritis from the vomiting, Phenergan for nausea, and pain medication only if needed. Start with fluids and bland food, slowly progress. Avoid NSAIDs, caffeine, smoking, alcohol, spicy foods. Because of the gallbladder status and recurring symptoms I recommend that you call and follow-up with the surgical clinic for evaluation and possible removal of the gallbladder. Return if you worsen including uncontrolled vomiting, vomiting blood, stools, severe abdominal pain, fever of 100.4 or greater, or any other concerning symptoms. Prescriptions: Famotidine [Pepcid 20 mg Tablet] 20 mg PO BID #20 tablet Hydrocodone/Acetaminophen [[place] 5-325 mg Tablet] 1 - 2 tab PO ASDIR #10 tablet Promethazine HCl [Phenergan 25 mg Tablet] 1 tab PO Q6H PRN #20 tablet PRN Reason: Sucralfate [Carafate 1 gm Tablet] 1 gm PO QID #20 tablet Referrals: [facility] [Provider Group] - Follow up as needed
--- NOTE | 2017-10-31 01:26 | RADIOLOGY REPORT (SQ) ---
EXAM DESCRIPTION: US ABDOMEN LIMITED COMPLETED DATE/TME: 10/30/2017 23:52 CLINICAL HISTORY: 36 years Female, RUQ and epigastric pain, vomiting Comparison: 03.22.17 LIMITATIONS: None. FINDINGS: Adenomyomatosis pattern of the gallbladder, gallbladder wall thickness is 0.2 cm, negative sonographic Barger's test, liver, a 0.2-cm diameter common bile duct, no intrahepatic ductal dilation, 11-cm right kidney, pancreas, visualized vasculature/abdominal aorta, and no significant ascites appear otherwise unremarkable. IMPRESSION: No acute findings. Adenomyomatosis.
[2017-10-31] MEDS ORDERED: SUCRALFATE 1 GM TABLET PO ONE (01:43)
[2017-10-31] MEDS ORDERED: FAMOTIDINE 20 MG TABLET PO ONE (01:43)
[2017-10-31] MEDS ORDERED: METOCLOPRAMIDE HCL INJ/PF 10 MG/2 ML SDV IV ONE (01:43)
[2017-10-31] MEDS ORDERED: DIPHENHYDRAMINE HCL 50 MG/ML VIAL IV ONE (01:43)
[2017-10-31] MEDS ORDERED: NORMAL SALINE 1000 ML 1,000 ML IV ONE (01:44)
[2017-10-31] MEDS ORDERED: HYDROCODONE/ACETAMINOPHEN 5-325 MG (6 TAB/ER DISP) PO PRN (03:49)
[2017-10-31] MEDS ORDERED: ONDANSETRON ODT 4 MG TAB (6 TAB/ER DISP) PO PRN (03:49)
[2017-10-31] MEDS ORDERED: PROMETHAZINE HCL 25 MG TABLET PO ONE (03:54)
[2017-10-31 04:30] VITALS: BP 158/118
--- NOTE | 2017-10-31 09:22 | EKG REPORT ---
SEVERITY:- BORDERLINE ECG - SINUS RHYTHM SHORT MA INTERVAL, ACCELERATED AV CONDUCTION RIGHT AXIS DEVIATION ST ELEV, PROBABLE NORMAL EARLY REPOL PATTERN : Confirmed by: Eze Hernandez 31-Oct-2017 09:22:03
== END 2017-10-31 04:33 | disposition home or self-care (01) ==
LOC: ER 22:10
DX: D13.5 Benign neoplasm of extrahepatic bile ducts (principal); R11.2 Nausea with vomiting, unspecified; E86.0 Dehydration; R10.10 Upper abdominal pain, unspecified; R10.817 Generalized abdominal tenderness; R11.10 Vomiting, unspecified; R51 Headache; R19.4 Change in bowel habit; R23.1 Pallor; I10 Essential (primary) hypertension; Z79.899 Other long term (current) drug therapy; Z98.51 Tubal ligation status; Z88.2 Allergy status to sulfonamides
CPT/HCPCS: 93005; 96376; 99285; 96361; 96374; 96375; 36415; 83690; 85025; 81025; 80053; 81001; 76705; 93010; J3490 ×3; J1200; J2765; J2270; J7030

== ENCOUNTER 2017-10-31 07:32 | Emergency (ER) | payer MEDICAID ==
[2017-10-31] MEDS ORDERED: NORMAL SALINE 1000 ML 1,000 ML IV ONE (08:06)
--- NOTE | 2017-10-31 08:06 | ER Document Report ---
ED GI/ - General Chief Complaint: Epigastric Pain Stated Complaint: VOMITING/HEADACHE Time Seen by Provider: 10/31/17 08:05 Mode of Arrival: Ambulatory Information source: Patient Notes: 36 yo female returns after being discharged at 0530 due to recurrent vomiting. Also has posterior right occipital headache. Vomiting over a week. GB US negative this am. Smokes marijuana 2 x day since age 16. No change in dealer. No diarrhea. No fever No dysuria. No vaginal d/c. TRAVEL OUTSIDE OF THE [place] IN LAST 30 DAYS: No - Related Data Allergies/Adverse Reactions: Sulfa (Sulfonamide Antibiotics) Allergy (Verified 10/31/17 07:36) Past Medical History - General Information source: Patient - Social History Smoking Status: Current Every Day Smoker Frequency of alcohol use: None Drug Abuse: Marijuana - Twice a day Family History: Reviewed & Not Pertinent - Past Medical History Cardiac Medical History: Reports: Hx Congestive Heart Failure - History of viral cardiomyopathy EF of 10% in 2014. EF now >55, Hx Hypertension Pulmonary Medical History: Reports: Hx Pneumonia Neurological Medical History: Reports: Hx Migraine Renal/ Medical History: Denies: Hx Peritoneal Dialysis Past Surgical History: Reports: Hx Cardiac Catheterization, Hx Tubal Ligation - Immunizations Hx Diphtheria, Pertussis, Tetanus Vaccination: Yes - 2014 Review of Systems - Review of Systems Constitutional: No symptoms reported EENT: No symptoms reported Cardiovascular: No symptoms reported Respiratory: No symptoms reported Gastrointestinal: See HPI Genitourinary: No symptoms reported Female Genitourinary: No symptoms reported Musculoskeletal: No symptoms reported Skin: No symptoms reported Hematologic/Lymphatic: No symptoms reported Neurological/Psychological: See HPI Physical Exam - Vital signs Vitals: Temp Pulse Resp BP Pulse Ox 98.3 F 66 18 176/108 H 100 10/31/17 07:43 10/31/17 07:43 10/31/17 07:43 10/31/17 07:43 10/31/17 07:43 Interpretation: Normal - General General appearance: Appears well, Alert - HEENT Head: Normocephalic, Atraumatic Eyes: Normal Pupils: PERRL - Respiratory Respiratory status: No respiratory distress Chest status: Nontender Breath sounds: Normal Chest palpation: Normal - Cardiovascular Rhythm: Regular Heart sounds: Normal auscultation Murmur: No - Abdominal Inspection: Normal Distension: No distension Bowel sounds: Normal Tenderness: Nontender Organomegaly: No organomegaly - Back Back: Normal, Nontender. No: CVA tenderness - Extremities General upper extremity: Normal inspection, Nontender, Normal color, Normal ROM , Normal temperature General lower extremity: Normal inspection, Nontender, Normal color, Normal ROM , Normal temperature, Normal weight bearing. No: Rafiq's sign - Neurological Neuro grossly intact: Yes Cognition: Normal Orientation: AAOx4 [place] Coma Scale Eye Opening: Spontaneous [place] Coma Scale Verbal: Oriented [place] Coma Scale Motor: Obeys Commands Lainey Coma Scale Total: 15 Speech: Normal Motor strength normal: LUE, RUE, LLE, RLE Sensory: Normal - Psychological Associated symptoms: Normal affect, Normal mood - Skin Skin Temperature: Warm Skin Moisture: Dry Skin Color: Normal Skin irregularity: negative: Rash Course - Re-evaluation Re-evalutation: 10/31/17 10:46 AST is mildly elevated, rest of lab work is normal, test is negative. She is now nontender. She is drinking aniket greta and eating crackers without vomiting. She denies smoking marijuana for several days. I will again have her follow-up with general surgery to evaluate gallbladder function, HIDA scan with EF, last HIDA they did not do a EF 03/19. Just found out grandma , needs to leave. - Vital Signs Vital signs: Temp Pulse Resp BP Pulse Ox 98.6 F 75 16 143/91 H 100 10/31/17 10:58 10/31/17 10:58 10/31/17 10:58 10/31/17 10:58 10/31/17 10:58 - Laboratory Result Diagrams: 10/31/17 08:03 10/31/17 08:03 Laboratory results interpreted by me: 10/31/17 10/31/17 10/31/17 08:03 08:03 08:31 RDW 15.8 H Glucose 111 H AST 46 H Urine Protein 30 H Urine Ketones TRACE H Urine Urobilinogen 2.0 H Urine Ascorbic Acid 40 H Discharge - Discharge Clinical Impression: Upper abdominal pain, vomiting, Chronic marijuana use, right neck muscle pain Condition: Good Disposition: HOME, SELF-CARE Instructions: Abdominal Pain ([facility]), Reglan ([facility]), Warm Packs ([facility]) Additional Instructions: get the Reglan filled stop smoking marijuana, there is a cyclical vomiting syndrome that you can get from chronic use of marijuana that is dose related see the general surgeon for evaluation of the gallbladder function which is a HIDA Scan with Ejection Fraction. to se if worse warm compress to right neck muscle spasms Referrals: DULCE DEVINE MD [ACTIVE STAFF] - Follow up as needed CURTIS TREVINO PA-C [Primary Care Provider] - Follow up as needed
[2017-10-31 08:22] LABS: ABSOLUTE BASOPHILS # (AUTO) 0.1 10^3/uL (0.0-0.2); ABSOLUTE LYMPHOCYTES (AUTO) 2.3 10^3/uL (0.5-4.7); ABSOLUTE MONOCYTES (AUTO) 0.4 10^3/uL (0.1-1.4); ABSOLUTE NEUT (AUTO) 6.9 10^3/uL (1.7-8.2); EOSINOPHILS % (AUTO) 0.2 % (0-6); HEMATOCRIT 40.6 % (36.0-47.0); HEMOGLOBIN 13.9 g/dL (12.0-15.5); LYMPHOCYTES % (AUTO) 23.4 % (13-45); MEAN CORPUSCULAR HEMOGLOBIN 30.2 pg (27.0-33.4); MEAN CORPUSCULAR HGB CONC 34.2 g/dL (32.0-36.0); MEAN CORPUSCULAR VOLUME 88 fl (80-97); PLATELET COUNT 186 10^3/uL (150-450); RED BLOOD COUNT 4.61 10^6/uL (3.72-5.28); RED CELL DISTRIBUTION WIDTH 15.8 % (11.5-14.0); SEGMENTED NEUTROPHILS % (AUTO) 71.4 % (42-78); TOTAL CELLS COUNTED % (AUTO) 100 %; WHITE BLOOD COUNT 9.7 10^3/uL (4.0-10.5)
[2017-10-31 08:42] LABS: ALANINE AMINOTRANSFERASE 25 U/L (9-52); ALBUMIN 4.6 g/dL (3.5-5.0); ALKALINE PHOSPHATASE 61 U/L (38-126); ANION GAP 14 (5-19); ASPARTATE AMINO TRANSFERASE 46 U/L (14-36); BILIRUBIN,DIRECT 0.3 mg/dL (0.0-0.4); BILIRUBIN,TOTAL 0.5 mg/dL (0.2-1.3); BLOOD UREA NITROGEN 14 mg/dL (7-20); CALCIUM 9.3 mg/dL (8.4-10.2); CARBON DIOXIDE 25 mmol/L (22-30); CHLORIDE 105 mmol/L (98-107); GLUCOSE 111 mg/dL (75-110); LIPASE 36.4 U/L (23-300); POTASSIUM 4.1 mmol/L (3.6-5.0); TOTAL PROTEIN 7.9 g/dL (6.3-8.2)
[2017-10-31 08:52] LABS: APPEARANCE,URINE SLIGHTLY-CLOUDY; BILIRUBIN,URINE NEGATIVE (NEGATIVE); COLOR,URINE YELLOW; GLUCOSE, URINE NEGATIVE (NEGATIVE); KETONES,URINE TRACE mg/dL (NEGATIVE); LEUKOCYTE ESTERASE,URINE NEGATIVE (NEGATIVE); NITRITE,URINE NEGATIVE (NEGATIVE); PROTEIN,URINE 30 mg/dL (NEGATIVE); URINE SPECIFIC GRAVITY 1.024
[2017-10-31] MEDS ORDERED: PROCHLORPERAZINE EDISYLATE INJ 10 MG/2 ML VIAL IV ONE ×2 (09:14→09:27)
[2017-10-31] MEDS ORDERED: DIPHENHYDRAMINE HCL 50 MG/ML VIAL IV ONE (09:14)
[2017-10-31] MEDS ORDERED: LANSOPRAZOLE 30 MG TAB.RAP.DR PO ONE (10:45)
[2017-10-31 11:02] VITALS: BP 143/91
== END 2017-10-31 11:02 | disposition home or self-care (01) ==
LOC: ER 07:32
DX: R10.13 Epigastric pain (principal); R10.10 Upper abdominal pain, unspecified; R11.10 Vomiting, unspecified; M54.2 Cervicalgia; F17.200 Nicotine dependence, unspecified, uncomplicated; R51 Headache; F12.10 Cannabis abuse, uncomplicated
CPT/HCPCS: 99283; 96361; 96374; 96375; 36415; 87086; 83690; 84703; 85025; 80053; 81001; J1200; J0780; J7030

== ENCOUNTER 2017-11-28 06:58 | Day surgery (SDC) | payer MEDICAID ==
[2017-11-24 10:46] LABS: HEMATOCRIT 36.8 % (36.0-47.0); HEMOGLOBIN 12.7 g/dL (12.0-15.5); MEAN CORPUSCULAR HEMOGLOBIN 30.2 pg (27.0-33.4); MEAN CORPUSCULAR HGB CONC 34.5 g/dL (32.0-36.0); MEAN CORPUSCULAR VOLUME 88 fl (80-97); PLATELET COUNT 131 10^3/uL (150-450); RED BLOOD COUNT 4.21 10^6/uL (3.72-5.28); RED CELL DISTRIBUTION WIDTH 15.1 % (11.5-14.0); WHITE BLOOD COUNT 6.5 10^3/uL (4.0-10.5)
[2017-11-24 12:16] LABS: ANION GAP 13 (5-19); BLOOD UREA NITROGEN 11 mg/dL (7-20); CALCIUM 9.1 mg/dL (8.4-10.2); CARBON DIOXIDE 22 mmol/L (22-30); CHLORIDE 106 mmol/L (98-107); GLUCOSE 84 mg/dL (75-110); POTASSIUM 4.2 mmol/L (3.6-5.0)
--- NOTE | 2017-11-24 20:31 | EKG REPORT ---
SEVERITY:- OTHERWISE NORMAL ECG - SINUS RHYTHM BORDERLINE RIGHT AXIS DEVIATION : Confirmed by: Eze Hernandez 24-Nov-2017 17:30:13
[~2017-11-28 06:58] MED LIST: LACTATED RINGERS 1000 ML IV PRN; LIDOCAINE 0.5% INJ-PF (5 MG/ML) 50 ML SDV SUBCUT PRN; RINGERS SOLUTION,LACTATED 1,000 ML IV PRN
[2017-11-28] MEDS ORDERED: FENTANYL CITRATE INJ/PF 100 MCG/2 ML AMPUL ONE (08:19)
[2017-11-28] MEDS ORDERED: PROPOFOL INJ 200 MG/20 ML VIAL IV ONE (08:19)
[2017-11-28] MEDS ORDERED: DEXAMETHASONE SOD PHOSPHATE INJ 4 MG/1 ML VIAL ONE (09:30)
[2017-11-28] MEDS ORDERED: ONDANSETRON HCL INJ/PF 4 MG/2 ML SDV ONE (09:30)
[2017-11-28] MEDS ORDERED: FENTANYL CITRATE INJ/PF 100 MCG/2 ML AMPUL IV PRN ×3 (09:59)
[2017-11-28] MEDS ORDERED: PROMETHAZINE HCL INJ 25 MG/1 ML VIAL IV PRN ×2 (09:59)
[2017-11-28] MEDS ORDERED: DIPHENHYDRAMINE HCL 50 MG/ML VIAL IV PRN (09:59)
--- NOTE | 2017-11-28 10:16 | Operative Report ---
Nonrecallable Operative Report DATE OF SURGERY: 11/28/17 PREOPERATIVE DIAGNOSIS: Abdominal pain POSTOPERATIVE DIAGNOSIS: 1. Severe gastritis. 2. Multiple small, shallow gastric ulcers. 3. Duodenitis. OPERATION: EGD with biopsy SURGEON: DARSHANA RODRIGUEZ ANESTHESIA: LMAC TISSUE REMOVED OR ALTERED: 1. Antral biopsy. 2. Duodenal bulb COMPLICATIONS: None apparent ESTIMATED BLOOD LOSS: Minimal PROCEDURE: Procedure in detail: After informed consent was obtained, the patient was brought into the operating room and laid in the left lateral decubitus position. The endoscope was passed down the oropharynx, down the esophagus, and into the stomach. The stomach was insufflated with air. Immediately there was noted to be petechiae throughout the stomach with old blood in the antrum of the stomach. The scope was pushed into the antrum, and multiple shallow gastric ulcers were found. The scope was pushed into the first and second portion of the duodenum. The second portion of the duodenum appeared normal, however the duodenal bulb was severely inflamed. Biopsy was taken in the duodenal bulb, at the area of maximal inflammation. The scope was pulled into the antrum. Biopsy was taken in the area of the shallow gastric ulcerations. A retroflexion maneuver was performed in the gastric body. No large hiatal hernias could be identified. The scope was pulled up into the distal esophagus. The Z line appeared normal without evidence of reflux esophagitis. The scope was then withdrawn up the esophagus. The esophagus was smooth in contour without masses, lesions, or other abnormalities. The scope was removed from the oropharynx, and the procedure was concluded. All sponge, instrument, and needle counts were correct 2. Condition: Stable.
--- NOTE | 2017-11-28 10:17 | Discharge Summary ---
Discharge Summary (SDC) - Discharge Final Diagnosis: Severe gastritis, gastric ulcers, duodenitis Date of Surgery: 11/28/17 Discharge Date: 11/28/17 Condition: Stable Referrals: CURTIS TREVINO PA-C [Primary Care Provider] - Discharge Diet: As Tolerated Respiratory Treatments at Home: Deep Breathing/Coughing, Incentive Spirometer Discharge Activity: Activity As Tolerated Home Care Assistance: None Needed Report the Following to Your Physician Immediately: Shortness of Breath, Nausea , Vomiting, Increase in Pain, Fever over 101 Degrees, Unusual Bleeding, Redness , Swelling, Warmth
[2017-11-28 11:30] VITALS: BP 113/78
== END 2017-11-28 11:35 | disposition home or self-care (01) ==
LOC: END 06:58
PROVIDERS: ATTEND Surgery
DX: K29.50 Unspecified chronic gastritis without bleeding (principal); K29.80 Duodenitis without bleeding; M19.90 Unspecified osteoarthritis, unspecified site; F17.210 Nicotine dependence, cigarettes, uncomplicated; I50.9 Heart failure, unspecified; G43.909 Migraine, unspecified, not intractable, without status migrainosus; K25.9 Gastric ulcer, unspecified as acute or chronic, without hemorrhage or perforation; Z88.2 Allergy status to sulfonamides; Z88.0 Allergy status to penicillin; Z86.79 Personal history of other diseases of the circulatory system; Z79.899 Other long term (current) drug therapy
CPT/HCPCS: 43239; 93005; 36415; 85027; 81025; 80048; 88342 ×2; 88305 ×2; 93010; J1100; J3010; J2405; J2704; 813